=== PATIENT | female | born 1985 | race Caucasian/White ===

== ENCOUNTER 2018-05-24 18:50 | Emergency (ER) | payer OTHER ==
[~2018-05-24] VITALS: Ht 165.1 cm; Wt 117.9 kg
[~2018-05-24 18:50] MED LIST: MEDR10TA PO
[2018-05-24 19:05] VITALS: BP 173/79
[2018-05-24 19:37] LABS: BASO # 0.1 x10^3/uL (0.0-0.2); BASO % 1 % (0-3); EOS # 0.1 x10^3/uL (0.0-0.7); EOS % 1 % (0-3); HEMOGLOBIN 9.7 g/dL (12.0-15.5); LYMPH # 2.9 x10^3/uL (1.0-4.8); LYMPH % 26 % (24-48); MEAN CORPUSCULAR HEMOGLOBIN 22 pg (25-35); MEAN CORPUSCULAR HGB CONC 31 g/dL (31-37); MEAN CORPUSCULAR VOLUME 68 fL (79-100); MONO # 0.5 x10^3/uL (0.0-1.1); MONO % 5 % (0-9); NEUT # 7.5 x10^3uL (1.8-7.7); NEUT % 68 % (31-73); PLATELET COUNT 445 x10^3/uL (140-400); RED BLOOD COUNT 4.54 x10^6/uL (3.50-5.40); RED CELL DISTRIBUTION WIDTH 16.6 % (11.5-14.5); WHITE BLOOD COUNT 11.1 x10^3/uL (4.0-11.0)
[2018-05-24 19:40] LABS: PROTHROMBIN TIME PATIENT 12.3 SEC (11.7-14.0)
[2018-05-24 20:03] LABS: PLT ESTIMATE INCREASED (ADEQUATE)
[2018-05-24 20:04] LABS: ANISOCYTOSIS SLIGHT; HYPOCHROMIA MOD; MICROCYTOSIS MOD; OVALOCYTES FEW; POIKILOCYTOSIS SLIGHT
--- NOTE | 2018-05-24 20:09 | RAD ---
Indication:VAG BLEEDING TECHNIQUE: Grayscale, color Doppler and spectral waveform images of the pelvis obtained. COMPARISON: Previous exam from 10/21/2016 FINDINGS: Uterus is anteverted and measures 8.7 x 3.8 x 4.7 cm (nodule, AP, transverse). Endometrial stripe is thickened measuring 1 cm with significant internal vascularity. Cervix within normal limits. Nabothian cyst is seen in the cervix measuring 8 mm. Right ovary measures 4.1 x 2.7 x 2.8 cm and shows blood flow. Left ovary measures 4.5 x 2.5 x 2.3 cm and shows blood flow. 2.0 x 1.8 x 1.5 cm dominant follicle or simple cyst is seen in the right ovary. IMPRESSION: Thickened endometrium with internal vascularity. Findings may be secondary to endometrial hyperplasia although endometrial malignancy is not ruled out. Correlate with hysteroscopy. Electronically signed by: Best Odom DO (05/24/2018 8:04 PM) [facility]
--- NOTE | 2018-05-24 20:24 | PHYS DOC ---
Past Medical History Past Medical History: Anemia, Diabetes-Type II Additional Past Medical Histor: PCOS,OBESITY Past Surgical History: No Surgical History Additional Information: nonsmoker Alcohol Use: None Drug Use: None Adult General Chief Complaint Chief Complaint: VAGINAL BLEEDING HPI HPI Patient is a 33 YO F that is presenting with heavy menstrual bleeding that has lasted for a month. She was diagnosed with metromenorrhagia in 2017 but it was well controlled on control and metformin before this started one month ago. She reports that she has had diffuse lower abdominal pain since this began , she reports this pain as sharp, localized, constant, and an 8/10. She reports some episodes of dizziness but has never lost consciousness. She has taken Tylenol for the pain but to no relief. She denies trauma. Review of Systems Review of Systems Constitutional: Denies fever or chills [] Eyes: Denies change in visual acuity, redness, or eye pain [] HENT: Denies nasal congestion or sore throat [] Respiratory: Denies cough or shortness of breath [] Cardiovascular: Denies chest pain or palpitations [] GI: Denies abdominal pain, nausea, vomiting, or diarrhea [] : Reports heavy vaginal bleeding and pelvic pain Musculoskeletal: Denies back pain or joint pain [] Integument: Denies rash or skin lesions [] Neurologic: Denies headache, focal weakness or sensory changes [] Complete systems were reviewed and found to be within normal limits, except as documented in this note. Allergies Allergies Allergies Coded Allergies Type Severity Reaction Last Updated Verified No Known Drug Allergies 10/21/16 No Physical Exam Physical Exam Constitutional: Well developed, well nourished, no acute distress, non-toxic appearance. [] HENT: Normocephalic, atraumatic, nose normal. [] Eyes: Conjunctiva normal, no discharge. [] Neck: Normal range of motion, no tenderness, supple. [] Cardiovascular: Heart rate regular rhythm, no murmur [] Lungs & Thorax: Bilateral breath sounds clear to auscultation [] Abdomen: Soft, no tenderness. [] Skin: Warm, dry, no erythema, no rash. [] : Clotted blood within the vaginal vault, cervix midline, non-erythematous, and closed, mild cervical tenderness on manual examination Extremities: No tenderness, no edema. [] Neurologic: Alert and oriented X 3, no focal deficits noted. [] Psychologic: Affect normal, judgement normal, mood normal. [] Current Patient Data Vital Signs Vital Signs Date Time Temp Pulse Resp B/P (MAP) Pulse Ox O2 Delivery O2 Flow Rate FiO2 05/24/18 19:05 98.7 104 18 173/79 (110) 98 Room Air 98.7 Lab Values Laboratory Tests Test 05/24/18 19:15 05/24/18 20:10 05/24/18 20:21 White Blood Count 11.1 x10^3/uL (4.0-11.0) H Red Blood Count 4.54 x10^6/uL (3.50-5.40) Hemoglobin 9.7 g/dL (12.0-15.5) L Hematocrit 31.0 % (36.0-47.0) L Mean Corpuscular Volume 68 fL (79-100) L Mean Corpuscular Hemoglobin 22 pg (25-35) L Mean Corpuscular Hemoglobin Concent 31 g/dL (31-37) Red Cell Distribution Width 16.6 % (11.5-14.5) H Platelet Count 445 x10^3/uL (140-400) H Neutrophils (%) (Auto) 68 % (31-73) Lymphocytes (%) (Auto) 26 % (24-48) Monocytes (%) (Auto) 5 % (0-9) Eosinophils (%) (Auto) 1 % (0-3) Basophils (%) (Auto) 1 % (0-3) Neutrophils # (Auto) 7.5 x10^3uL (1.8-7.7) Lymphocytes # (Auto) 2.9 x10^3/uL (1.0-4.8) Monocytes # (Auto) 0.5 x10^3/uL (0.0-1.1) Eosinophils # (Auto) 0.1 x10^3/uL (0.0-0.7) Basophils # (Auto) 0.1 x10^3/uL (0.0-0.2) Platelet Estimate Increased (ADEQUATE) Hypochromasia Mod Poikilocytosis Slight Anisocytosis Slight Microcytosis Mod Ovalocytes Few Prothrombin Time 12.3 SEC (11.7-14.0) Prothrombin Time INR 0.9 (0.8-1.1) PTT 24 SEC (24-38) Urine Collection Type Unknown Urine Color Yellow Urine Clarity Cloudy Urine pH 5.5 Urine Specific [place] >=1.030 Urine Protein 30 mg/dL (NEG-TRACE) Urine Glucose (UA) Negative mg/dL (NEG) Urine Ketones (Stick) Negative mg/dL (NEG) Urine Blood Large (NEG) Urine Nitrite Negative (NEG) Urine Bilirubin Negative (NEG) Urine Urobilinogen Dipstick 0.2 mg/dL (0.2 mg/dL) Urine Leukocyte Esterase Negative (NEG) Urine RBC >40 /HPF (0-2) Urine WBC 1-4 /HPF (0-4) Urine Squamous Epithelial Cells Mod /LPF Urine Bacteria Few /HPF (0-FEW) Urine Mucus Mod /LPF POC Urine HCG, Qualitative Hcg negative (Negative) Laboratory Tests 05/24/18 19:15 Microbiology 05/24/18 Wet Prep - Final, Complete EKG EKG [] Radiology/Procedures Radiology/Procedures PROCEDURE: PELVIS W/TV Indication:VAG BLEEDING TECHNIQUE: Grayscale, color Doppler and spectral waveform images of the pelvis obtained. COMPARISON: Previous exam from 10/21/2016 FINDINGS: Uterus is anteverted and measures 8.7 x 3.8 x 4.7 cm (nodule, AP, transverse). Endometrial stripe is thickened measuring 1 cm with significant internal vascularity. Cervix within normal limits. Nabothian cyst is seen in the cervix measuring 8 mm. Right ovary measures 4.1 x 2.7 x 2.8 cm and shows blood flow. Left ovary measures 4.5 x 2.5 x 2.3 cm and shows blood flow. 2.0 x 1.8 x 1.5 cm dominant follicle or simple cyst is seen in the right ovary. IMPRESSION: Thickened endometrium with internal vascularity. Findings may be secondary to endometrial hyperplasia although endometrial malignancy is not ruled out. Correlate with hysteroscopy. Electronically signed by: Best Odom DO (05/24/2018 8:04 PM) [facility] Course & Med Decision Making Course & Med Decision Making Pertinent Labs and Imaging studies reviewed. (See chart for details) Patient is a 33 YO F that is presenting with one month of heavy vaginal bleeding. Patient has a PMH of PCOS and metromenorrhagia that had been well controlled on control and metformin. Labs were obtained and posted to chart. Coagulation was WNL. CBC showed a Hgb of 9.7. Pelvic exam was conducted showing blood in the vaginal vault. Swabs obtained for gonorrhea, chlamydia, and trichomonas. TVUS showed thickened endometrium with internal vascularity. Findings may be secondary to endometrial hyperplasia although endometrial malignancy is not ruled out. Patient advised to follow up with an STAPLER MACHINE to further evaluate the increased bleeding. Patient stable for discharge with outpatient follow-up with PCP. Discussed findings and plan with patient and family, who acknowledge understanding and agreement. Dragon Disclaimer Dragon Disclaimer This electronic medical record was generated, in whole or in part, using a voice recognition dictation system. Departure Departure Impression: Primary Impression: Menometrorrhagia Disposition: 01 HOME, SELF-CARE Condition: STABLE Referrals: MARY RICHARD (PCP) KIMMIE MORENO Jr, MD Patient Instructions: Menorrhagia, [id number] LACEY MENESES DO May 24, 2018 20:24
[2018-05-24 20:28] LABS: BILIRUBIN,URINE NEGATIVE (NEG); CLARITY,URINE CLOUDY; COLOR,URINE YELLOW; NITRITE,URINE NEGATIVE (NEG); PH,URINE 5.5; PROTEIN,URINE 30 mg/dL (NEG-TRACE); UROBILINOGEN,URINE 0.2 mg/dL (0.2 mg/dL)
[2018-05-24 20:41] LABS: BACTERIA,URINE FEW /HPF (0-FEW); RBC,URINE >40 /HPF (0-2); SQUAMOUS EPITHELIAL CELL,UR MOD /LPF
== END 2018-05-24 21:15 | disposition home or self-care (01) ==
LOC: ER 18:50
DX: N92.1 Excessive and frequent menstruation with irregular cycle (principal); N88.8 Other specified noninflammatory disorders of cervix uteri; R42 Dizziness and giddiness; E11.9 Type 2 diabetes mellitus without complications; E66.9 Obesity, unspecified; Z68.41 Body mass index [BMI] 40.0-44.9, adult
CPT/HCPCS: 76830; 76856; 81001; 81025; 85025; 85610; 85730; 99284; Q0111

== ENCOUNTER 2018-06-21 07:53 | Day surgery (SDC) | payer OTHER ==
[~2018-06-21 07:53] MED LIST changes: +ACET500T33 PO; +HYDROmorphone 2 MG/ML VIAL IV PRN; +IV RINGERS,LACTATED 1000ML 1,000 ML IV SCH; +LEVO75TA PO; +LIDOCAINE 1% PF 2 ML VIAL. ID PRN; +METF500T16 PO; +MORPHINE SULFATE 2 MG/ML VIAL. IV PRN; +MULT1TAB52 PO; +ONDANSETRON PF 4 MG/2 ML VIAL. IV PRN; +PROCHLORPERAZINE 10 MG/2 ML VIAL. IV PRN; +fentaNYL PF VIAL 100 MCG/2 ML VIAL IV PRN
[2018-06-21 08:17] LABS: U PREG PATIENT NEGATIVE (NEG)
[2018-06-21] MEDS ORDERED: ONDANSETRON PF 4 MG/2 ML VIAL. ONE (08:23)
[2018-06-21] MEDS ORDERED: LIDOCAINE 2% PF 5 ML VIAL. ONE (08:23)
[2018-06-21] MEDS ORDERED: DEXAMETHASONE SOD PHOS 20 MG/5 ML VIAL. ONE (08:23)
[2018-06-21] MEDS ORDERED: fentaNYL PF VIAL 100 MCG/2 ML VIAL ONE (08:23)
[2018-06-21] MEDS ORDERED: PROPOFOL 20 ML IV ONE ×2 (08:23→10:30)
[2018-06-21] MEDS ORDERED: DESFLURANE 16 TO 30 MINUTES. IH ONE (10:21)
[2018-06-21] MEDS ORDERED: KETOROLAC 30 MG/ML INJ FOR OR. INJ ONE (10:35)
--- NOTE | 2018-06-21 10:48 | PDOC ---
BRIEF OPERATIVE NOTE Date: Jun 21, 2018 Pre-Op Diagnosis DUB, morbid obesity Post-Op Diagnosis same Procedure Performed hysteroscopy D&C with trHoney system Surgeon Dr. Kathy Harding Anesthesiologist Dr. Curtis Anesthesia Type: General Blood Loss 10cc IV Fluid 250cc Urine Output 100cc straight cath prior to procedure Specimens Obtained uterine currettings Findings uterus sounded to 8-8.5cm no fibroids seen, but abundant polypoid tissue just seen Complications none def 350cc ; total resection time 2min 28sec Operative Note [id number] KATHY HARDING MD Jun 21, 2018 10:48
[2018-06-21] MEDS ORDERED: diphenhydrAMINE HCL 25 MG CAPSULE PO PRN (11:00)
[2018-06-21] MEDS ORDERED: NALOXONE 0.4 MG/ML VIAL. IV PRN (11:00)
[2018-06-21] MEDS ORDERED: HYDROcodone/APAP 5/325MG 1 TAB TABLET PO PRN (11:00)
[2018-06-21] MEDS ORDERED: SIMETHICONE 80 MG TAB.CHEW PO PRN (11:00)
[2018-06-21] MEDS ORDERED: MAG HYDROX/ALUMINUM HYD/SIMETH 30 ML ORAL.SUSP PO PRN (11:00)
[2018-06-21] MEDS ORDERED: 0.9 % SODIUM CHLORIDE 10 ML DISP.SYRIN. IV PRN (11:00)
[2018-06-21] MEDS ORDERED: CALCIUM CARBONATE 500 MG TAB.CHEW PO PRN (11:00)
[2018-06-21] MEDS ORDERED: diphenhydrAMINE 50 MG/ML VIAL IV PRN (11:00)
[2018-06-21] MEDS ORDERED: HYDR-2761 PO (11:16)
--- NOTE | 2018-06-21 11:24 | OP ---
DATE OF SURGERY: 06/21/2018 PREOPERATIVE DIAGNOSES: Dysfunctional uterine bleeding and morbid obesity, failing outpatient medical management. POSTOPERATIVE DIAGNOSES: Dysfunctional uterine bleeding and morbid obesity, failing outpatient medical management. PROCEDURE: Hysteroscopy, D and C with TruClear system. SURGEON: Franchesca Harding M.D. QUALITY REVIEW TRAINER: OR personnel. ANESTHESIOLOGIST: Lenin Curtis M.D. ANESTHESIA: General. ESTIMATED BLOOD LOSS: 10 mL. URINE OUTPUT: 100 mL straight cathed prior to procedure. INTRAVENOUS FLUIDS: 250 mL of Crystalloid. SPECIMENS: Uterine curettings. FINDINGS: A uterus that sounded to 8 to 8.5 cm. No true fibroids seen. She did have abundant red tissue that was just polypoid in nature. COMPLICATIONS: None. There was a total deficit of 350 mL of fluid and a total resection time of 2 minutes and 28 seconds with the TruClear system with the soft tissue blade with the mini shaver. DESCRIPTION OF PROCEDURE: This patient was taken to the operating room, where general anesthesia was placed. The patient was placed in dorsal lithotomy position in [facility]. The patient's vagina had been prepped and draped in the normal sterile fashion and a straight cath urine had been done prior to my arrival. Once a timeout was performed, a weighted speculum was placed in the patient's vagina. A single-tooth tenaculum was used to grasp the anterior lip of the cervix. Hegar dilators were used to dilate up to a 10. She sounded to 8 to 8.5 cm. The scope had already been primed and ready, the TruClear scope. It was placed in with the above findings. The mini soft tissue blade was obtained and a fractional curetting was done under direct visualization. It did clean the uterus out nicely. Both tubal ostia were clearly seen and there was no defect in the uterine cavity appreciated. Once this was done, the procedure was ended. It was removed. The tenaculum was removed. There was no bleeding from the tenaculum sites. Weighted speculum was removed and she was awakened from anesthesia and brought to recovery room in stable condition. FRANCHESCA HARDING MD DR: FAUSTO/clemente JOB#: [id number] / [id number]
[2018-06-21 12:06] VITALS: BP 139/66
--- NOTE | 2018-06-22 17:10 | PATHOLOGY ---
[facility] Accession Number: [id number] . 01 Material submitted: . UTERINE CURETTINGS . 01 Clinical history: . Menorrhagia . 02 Diagnosis: Uterine curettings: - Segments of proliferative endometrium and endometrial polyp with focal recent stromal hemorrhage. . (JPM:mm; 06/22/2018) [facility]/06/22/2018 . 02 Comment: There is no evidence of hyperplasia or malignancy. . (JPM:mm; 06/22/2018) . 02 Electronically signed: . Pablo Chavez MD, Pathologist NPI- [id number] . 01 Gross description: . Received in formalin labeled "Angella Samano, uterine curettings," are multiple segments of brown soft tissue measuring 2.4 x 1.2 x 0.2 cm in aggregate dimensions. The specimen is filtered and entirely submitted in cassette A1. (TSD; 06/21/2018) TOB/TOB . 02 Pathologist provided ICD-10: N84.0 . 02 CPT . 425003 Specimen Comment: A courtesy copy of this report has been sent to Specimen Comment: [phone], . Specimen Comment: Report sent to / DR RICHARD Specimen Comment: A duplicate report has been generated due to demographic updates. Performed at: 01 [facility] [address] [facility] [address], [place] [id number] MD Javier Watts MD Phone: [phone] Performed at: 02 [facility] [address] [place], [place] [id number] MD Pablo Chavez MD Phone: [phone]
== END 2018-06-21 12:32 | disposition home or self-care (01) ==
LOC: SURG 07:53
PROVIDERS: ATTEND Obstetrics & Gynecology
DX: N84.0 Polyp of corpus uteri (principal); E11.9 Type 2 diabetes mellitus without complications; E03.9 Hypothyroidism, unspecified; E28.2 Polycystic ovarian syndrome; D64.9 Anemia, unspecified; Z79.84 Long term (current) use of oral hypoglycemic drugs; Z79.899 Other long term (current) drug therapy; Z80.41 Family history of malignant neoplasm of ovary; Z83.49 Family history of other endocrine, nutritional and metabolic diseases; Z82.49 Family history of ischemic heart disease and other diseases of the circulatory system; Z83.3 Family history of diabetes mellitus; E66.01 Morbid (severe) obesity due to excess calories; Z68.43 Body mass index [BMI] 50.0-59.9, adult
CPT/HCPCS: 58558; 81025; 82962; 88305; A7015; J1100; J1885; J2001; J2405; J2704; J3010

== ENCOUNTER 2019-03-21 00:47 | Inpatient (IN) | payer OTHER ==
[~2019-03-21] VITALS: Ht 167.6 cm; Wt 117.5 kg
[~2019-03-21 00:47] MED LIST changes: +HYDR-2761 PO; -HYDROmorphone 2 MG/ML VIAL IV PRN; -IV RINGERS,LACTATED 1000ML 1,000 ML IV SCH; -LIDOCAINE 1% PF 2 ML VIAL. ID PRN; -MORPHINE SULFATE 2 MG/ML VIAL. IV PRN; -ONDANSETRON PF 4 MG/2 ML VIAL. IV PRN; -PROCHLORPERAZINE 10 MG/2 ML VIAL. IV PRN; -fentaNYL PF VIAL 100 MCG/2 ML VIAL IV PRN
[2019-03-21] MEDS ORDERED: IV NORMAL SALINE 1000ML BAG 1,000 ML IV SCH (01:45)
[2019-03-21 01:48] LABS: BASO # 0.1 x10^3/uL (0.0-0.2); BASO % 1 % (0-3); EOS % 1 % (0-3); HEMATOCRIT 33.1 % (36.0-47.0); HEMOGLOBIN 10.6 g/dL (12.0-15.5); LYMPH # 3.2 x10^3/uL (1.0-4.8); LYMPH % 37 % (24-48); MEAN CORPUSCULAR HEMOGLOBIN 22 pg (25-35); MEAN CORPUSCULAR HGB CONC 32 g/dL (31-37); MEAN CORPUSCULAR VOLUME 69 fL (79-100); MONO # 0.5 x10^3/uL (0.0-1.1); MONO % 6 % (0-9); NEUT # 4.8 x10^3/uL (1.8-7.7); NEUT % 55 % (31-73); PLATELET COUNT 346 x10^3/uL (140-400); RED CELL DISTRIBUTION WIDTH 17.6 % (11.5-14.5); WHITE BLOOD COUNT 8.6 x10^3/uL (4.0-11.0)
[2019-03-21 01:57] LABS: CALCIUM 9.1 mg/dL (8.5-10.1); CREATININE 0.7 mg/dL (0.6-1.0); GFR 96.4; POTASSIUM 3.7 mmol/L (3.5-5.1)
[2019-03-21] MEDS ORDERED: KETOROLAC 30 MG/ML VIAL. IV ONE (02:00)
[2019-03-21] MEDS ORDERED: ONDANSETRON PF 4 MG/2 ML VIAL. IV ONE (02:00)
[2019-03-21 02:03] LABS: ALBUMIN 3.4 g/dL (3.4-5.0); ALBUMIN/GLOBULIN RATIO 0.7 (1.0-1.7); TOTAL BILIRUBIN 0.3 mg/dL (0.2-1.0); TOTAL PROTEIN 8.2 g/dL (6.4-8.2)
[2019-03-21 02:11] LABS: HYPOCHROMIA MOD; PLT ESTIMATE ADEQUATE (ADEQUATE)
[2019-03-21 02:12] LABS: ANISOCYTOSIS SLIGHT; MICROCYTOSIS MARKED; OVALOCYTES FEW; TEAR DROP CELLS OCC
[2019-03-21 02:46] LABS: BILIRUBIN,URINE NEGATIVE (NEG); CLARITY,URINE CLEAR; COLOR,URINE AMBER; NITRITE,URINE NEGATIVE (NEG); PH,URINE 5.5; PROTEIN,URINE NEGATIVE (NEG-TRACE)
[2019-03-21 02:52] LABS: BACTERIA,URINE FEW /HPF (0-FEW); RBC,URINE 0 /HPF (0-2); SQUAMOUS EPITHELIAL CELL,UR MOD /LPF
--- NOTE | 2019-03-21 02:52 | RAD ---
INDICATION: Epigastric pain COMPARISON: None. TECHNIQUE: Grayscale and color ultrasound images obtained through the abdomen. FINDINGS: Aorta/IVC: Only partially seen Pancreas: Partially seen without definite adjacent fluid collection. Liver: Echogenic with heterogeneity. Portions not well seen secondary to poor beam penetration. Gallbladder: Gallstones. Wall measures 3-4 mm but large portions of the wall not seen secondary to shadowing Common Bile Duct: Not dilated. Right Kidney: No hydronephrosis. IMPRESSION: * Gallstones are identified. A large portion of the gallbladder wall is not seen secondary to shadowing from the gallstones but visualized portion appears mildly thickened. The patient also does have some pain in the right upper quadrant the abdomen. Given this constellation of findings causes such as cholecystitis is not excluded on this examination and if further imaging evaluation is desired nuclear hepatobiliary scan could further evaluate. * The liver is echogenic. Nonspecific but can be seen with fatty infiltration Electronically signed by: Augustus Thakkar MD (03/21/2019 2:49 AM) [facility]
--- NOTE | 2019-03-21 03:09 | PHYS DOC ---
Past Medical History Past Medical History: Anemia, Diabetes-Type II Additional Past Medical Histor: PCOS,OBESITY Past Surgical History: No Surgical History Alcohol Use: None Drug Use: None Adult General Chief Complaint Chief Complaint: ABDOMINAL PAIN HPI HPI Patient is a 34 year old with history of type 2 diabetes mellitus and anemia who presents with complaining of abdominal pain. Patient complaining of epigastric pain with radiation to her back for the last 4 days as a constant pain and rated her pain 8/10. Patient states she had nausea and 2 or 3 episodes of vomiting every day without diarrhea and constipation, fever and chills, urinary symptoms, vaginal bleeding or . Patient denies the pain does not change with eating or activity and denies history of the same pain. Review of Systems Review of Systems Constitutional: Denies fever or chills [] Eyes: Denies change in visual acuity, redness, or eye pain [] HENT: Denies nasal congestion or sore throat [] Respiratory: Denies cough or shortness of breath [] Cardiovascular: No additional information not addressed in HPI [] GI: Reports abdominal pain, nausea, vomiting, denies bloody stools or diarrhea [] : Denies dysuria or hematuria [] Musculoskeletal: Denies back pain or joint pain [] Integument: Denies rash or skin lesions [] Neurologic: Denies headache, focal weakness or sensory changes [] Endocrine: Denies polyuria or polydipsia [] All other systems were reviewed and found to be within normal limits, except as documented in this note. Current Medications Current Medications Current Medications Medications (Trade) Dose Ordered Sig/Marilee Start Time Stop Time Status Last Admin Dose Admin Ketorolac Tromethamine (Toradol 30mg Vial) 30 mg 1X ONCE 03/21/19 02:00 03/21/19 02:01 DC Ondansetron HCl (Zofran) 4 mg 1X ONCE 03/21/19 02:00 03/21/19 02:01 DC 03/21/19 02:21 4 MG Sodium Chloride 1,000 ml @ 1,000 mls/hr Q1H 03/21/19 01:45 03/21/19 02:44 DC 03/21/19 02:10 1,000 MLS/HR Allergies Allergies Allergies Coded Allergies Type Severity Reaction Last Updated Verified ketorolac Allergy Unknown 03/21/19 Yes Physical Exam Physical Exam Constitutional: Well developed, well nourished, moderately distress, non-toxic appearance, morbidly obese. [] HENT: Normocephalic, atraumatic, bilateral external ears normal, oropharynx moist, no oral exudates, nose normal. [] Eyes: PERRLA, EOMI, conjunctiva normal, no discharge. [] Neck: Normal range of motion, no tenderness, supple, no stridor. [] Cardiovascular:Heart rate regular rhythm, no murmur [] Lungs & Thorax: Bilateral breath sounds clear to auscultation [] Abdomen: Bowel sounds normal, soft, epigastric and right upper quadrant guarding , no masses, no pulsatile masses. [] Skin: Warm, dry, no erythema, no rash. [] Back: No tenderness, no CVA tenderness. [] Extremities: No tenderness, no cyanosis, no clubbing, ROM intact, no edema. [] Neurologic: Alert and oriented X 3, normal motor function, normal sensory function, no focal deficits noted. [] Psychologic: Affect normal, judgement normal, mood normal. [] Current Patient Data Vital Signs Vital Signs Date Time Temp Pulse Resp B/P (MAP) Pulse Ox O2 Delivery O2 Flow Rate FiO2 03/21/19 02:49 92 131/78 (95) 98 Room Air 03/21/19 01:22 99.0 18 99.0 Lab Values Laboratory Tests Test 03/21/19 01:38 03/21/19 02:40 White Blood Count 8.6 x10^3/uL (4.0-11.0) Red Blood Count 4.80 x10^6/uL (3.50-5.40) Hemoglobin 10.6 g/dL (12.0-15.5) L Hematocrit 33.1 % (36.0-47.0) L Mean Corpuscular Volume 69 fL (79-100) L Mean Corpuscular Hemoglobin 22 pg (25-35) L Mean Corpuscular Hemoglobin Concent 32 g/dL (31-37) Red Cell Distribution Width 17.6 % (11.5-14.5) H Platelet Count 346 x10^3/uL (140-400) Neutrophils (%) (Auto) 55 % (31-73) Lymphocytes (%) (Auto) 37 % (24-48) Monocytes (%) (Auto) 6 % (0-9) Eosinophils (%) (Auto) 1 % (0-3) Basophils (%) (Auto) 1 % (0-3) Neutrophils # (Auto) 4.8 x10^3/uL (1.8-7.7) Lymphocytes # (Auto) 3.2 x10^3/uL (1.0-4.8) Monocytes # (Auto) 0.5 x10^3/uL (0.0-1.1) Eosinophils # (Auto) 0.0 x10^3/uL (0.0-0.7) Basophils # (Auto) 0.1 x10^3/uL (0.0-0.2) Platelet Estimate Adequate (ADEQUATE) Hypochromasia Mod Anisocytosis Slight Microcytosis Marked Tear Drop Cells Occ Ovalocytes Few Sodium Level 141 mmol/L (136-145) Potassium Level 3.7 mmol/L (3.5-5.1) Chloride Level 101 mmol/L (98-107) Carbon Dioxide Level 29 mmol/L (21-32) Anion Gap 11 (6-14) Blood Urea Nitrogen 7 mg/dL (7-20) Creatinine 0.7 mg/dL (0.6-1.0) Estimated GFR (Cockcroft-Gault) 96.4 BUN/Creatinine Ratio 10 (6-20) Glucose Level 105 mg/dL (70-99) H Calcium Level 9.1 mg/dL (8.5-10.1) Total Bilirubin 0.3 mg/dL (0.2-1.0) Aspartate Amino Transferase (AST) 58 U/L (15-37) H Alanine Aminotransferase (ALT) 53 U/L (14-59) Alkaline Phosphatase 94 U/L (46-116) Total Protein 8.2 g/dL (6.4-8.2) Albumin 3.4 g/dL (3.4-5.0) Albumin/Globulin Ratio 0.7 (1.0-1.7) L Lipase 133 U/L (73-393) Urine Collection Type Unknown Urine Color [place] Urine Clarity Clear Urine pH 5.5 Urine Specific [place] 1.025 Urine Protein Negative mg/dL (NEG-TRACE) Urine Glucose (UA) Negative mg/dL (NEG) Urine Ketones (Stick) Trace mg/dL (NEG) Urine Blood Negative (NEG) Urine Nitrite Negative (NEG) Urine Bilirubin Negative (NEG) Urine Urobilinogen Dipstick 1.0 mg/dL (0.2 mg/dL) Urine Leukocyte Esterase Negative (NEG) Urine RBC 0 /HPF (0-2) Urine WBC 1-4 /HPF (0-4) Urine Squamous Epithelial Cells Mod /LPF Urine Bacteria Few /HPF (0-FEW) Urine Mucus Marked /LPF Laboratory Tests 03/21/19 01:38 Laboratory Tests 03/21/19 01:38 EKG EKG [] Radiology/Procedures Radiology/Procedures [][facility] [address] [place] [address] IMAGING REPORT Signed PATIENT: TABATHA LOVE ACCOUNT: [id number] : 1985 LOCATION: ER AGE: 34 SEX: F EXAM STATUS: REG ER ORD. PHYSICIAN: BLOSSOM MORALES MD REASON: epigastric pain PROCEDURE: ABDOMEN LTD INDICATION: Epigastric pain COMPARISON: None. TECHNIQUE: Grayscale and color ultrasound images obtained through the abdomen. FINDINGS: Aorta/IVC: Only partially seen Pancreas: Partially seen without definite adjacent fluid collection. Liver: Echogenic with heterogeneity. Portions not well seen secondary to poor beam penetration. Gallbladder: Gallstones. Wall measures 3-4 mm but large portions of the wall not seen secondary to shadowing Common Bile Duct: Not dilated. Right Kidney: No hydronephrosis. IMPRESSION: * Gallstones are identified. A large portion of the gallbladder wall is not seen secondary to shadowing from the gallstones but visualized portion appears mildly thickened. The patient also does have some pain in the right upper quadrant the abdomen. Given this constellation of findings causes such as cholecystitis is not excluded on this examination and if further imaging evaluation is desired nuclear hepatobiliary scan could further evaluate. * The liver is echogenic. Nonspecific but can be seen with fatty infiltration Electronically signed by: Felisha He MD (03/21/2019 2:49 AM) [facility] DICTATED and SIGNED BY: FELISHA HE MD DATE: 03/21/19 0249 Course & Med Decision Making Course & Med Decision Making Pertinent Labs and Imaging studies reviewed. (See chart for details) Evaluation of patient in ER showed 34-year-old male patient with complaining of epigastric and right upper quadrant pain for 4 days and nausea and vomiting. Patient had tenderness of epigastric and right upper quadrant and gallbladder ultrasound showed gallstones with wall thickening of gallbladder. Patient treated with IV fluid, Zofran, fentanyl and morphine with improvement of her pain. Patient requiring admission for further evaluation and treatment. Discussed with Dr. Paulino who is in agreement with admission. Discussed findings and plan with patient and family, who acknowledge understanding and agreement. Surgical consult was requested. Dragon Disclaimer Dragon Disclaimer This electronic medical record was generated, in whole or in part, using a voice recognition dictation system. Departure Departure Impression: Primary Impression: Acute cholecystitis Additional Impressions: Morbid obesity Chronic anemia Nausea and vomiting Disposition: ADMITTED INPATIENT (at 0307) Admitting Physician: CHALINO (Dr. Paulino accepted admission) Condition: IMPROVED Referrals: MARY RICHARD (PCP) Problem Qualifiers Additional Impressions: Nausea and vomiting Vomiting type: unspecified Vomiting Intractability: unspecified Qualified Codes: R11.2 - Nausea with vomiting, unspecified BLOSSOM MORALES MD Mar 21, 2019 03:09
[2019-03-21] MEDS ORDERED: MORPHINE SULFATE 4 MG/ML VIAL. IV PRN (03:15)
[2019-03-21] MEDS ORDERED: MORPHINE SULFATE 4 MG/ML VIAL. IV ONE (03:30)
[2019-03-21 04:02] VITALS: BP 121/76
[2019-03-21] MEDS: IV NORMAL SALINE 1000ML BAG 1,000 ML IV SCH ×3 (04:15→17:05)
[2019-03-21] MEDS ORDERED: LEXAPRO20 MG PO (05:02)
[2019-03-21 07:20] VITALS: BP 122/83
[2019-03-21] MEDS: ONDANSETRON PF 4 MG/2 ML VIAL. IVP PRN ×3 (07:22→19:48)
[2019-03-21] MEDS: LEVOTHYROXINE 75 MCG TABLET PO SCH (10:30)
--- NOTE | 2019-03-21 10:51 | PDOC1 ---
History and Physical Date of Admission Date of Admission DATE: 03/21/19 TIME: 10:47 Identification/Chief Complaint Chief Complaint Abdominal pain Source Source: Patient History of Present Illness History of Present Illness Ms Addison is a 34 yo F w/ PMHx morbid obesity, type 2 diabetes mellitus, PCOS and anemia who presents with complaining of abdominal pain. Patient complaining of epigastric pain with radiation to her back for the last 4 days as a constant pain and rated her pain 8/10. Patient states she had nausea and 2 or 3 episodes of vomiting every day without diarrhea and constipation, fever and chills, urina ry symptoms, vaginal bleeding or . Patient denies the pain does not change with eating or activity and denies history of the same pain. Past Medical History Cardiovascular: No pertinent hx Pulmonary: No pertinent hx GI: No pertinent hx Heme/Onc: Anemia NOS Hepatobiliary: No pertinent hx Psych: No pertinent hx Rheumatologic: No pertinent hx Infectious disease: No pertinent hx ENT: No pertinent hx Renal/: No pertinent hx Endocrine: Diabetes Dermatology: No pertinent hx Past Surgical History Past Surgical History: No pertinent history Family History Family History: Diabetes, High Cholestrol, Hypothyroidism Social History Smoke: No ALCOHOL: rare Drugs: None Current Problem List Problem List Problems Medical Problems: (1) Acute cholecystitis Status: Acute (2) Chronic anemia Status: Acute (3) Morbid obesity Status: Acute (4) Nausea and vomiting Status: Acute Current Medications Current Medications Current Medications Sodium Chloride 1,000 ml @ 1,000 mls/hr Q1H IV Last administered on 03/21/19at 02:10; Start 03/21/19 at 01:45; Stop 03/21/19 at 02:44; Status DC Ondansetron HCl (Zofran) 4 mg 1X ONCE IV Last administered on 03/21/19at 02:21; Start 03/21/19 at 02:00; Stop 03/21/19 at 02:01; Status DC Ketorolac Tromethamine (Toradol 30mg Vial) 30 mg 1X ONCE IV ; Start 03/21/19 at 02:00; Stop 03/21/19 at 02:01; Status DC Morphine Sulfate (Morphine Sulfate) 4 mg 1X ONCE IV Last administered on 03/21/19at 03:31; Start 03/21/19 at 03:30; Stop 03/21/19 at 03:31; Status DC Morphine Sulfate (Morphine Sulfate) 4 mg PRN Q2HR PRN IV PAIN Last administered on 03/21/19at 05:26; Start 03/21/19 at 03:15; Stop 03/21/19 at 09:00; Status DC Sodium Chloride 1,000 ml @ 150 mls/hr Q6H40M IV Last administered on 03/21/19at 04:15; Start 03/21/19 at 03:15; Stop 03/22/19 at 03:14 Ondansetron HCl (Zofran) 4 mg PRN Q6HRS PRN IVP NAUSEA/VOMITING Last administered on 03/21/19at 07:22; Start 03/21/19 at 07:15 Active Scripts Active Reported Lexapro (Escitalopram Oxalate) 20 Mg Tablet 1 Tab PO DAILY Hydrocodone-Apap 5-325 (Hydrocodone Bit/Acetaminophen) 1 Tab Tablet 1-2 Tab PO PRN Q6HRS PRN LAST DOSE GIVEN: at so next dose at as needed for pain. Tylenol Extra Strength (Acetaminophen) 500 Mg Tablet 500 Mg PO PRN PRN Multivitamins (Multivitamin) 1 Each Tablet 1 Tab PO DAILY Synthroid (Levothyroxine Sodium) 75 Mcg Tablet 1 Tab PO DAILY Metformin Hcl 500 Mg Tablet 1,000 Mg PO BIDWMEALS Allergies Allergies: Coded Allergies: ketorolac (Verified Allergy, Unknown, 03/21/19) ROS General: YES: Fatigue, Malaise, Appetite; No: Chills, Night Sweats, Other PSYCHOLOGICAL ROS: No: Anxiety, Behavioral Disorder, Concentration difficultie, Decreased libido, Depression, Disorientation, Hallucinations, Hostility, Irrit ablity, Memory difficulties, Mood Swings, Obsessive thoughts, Physical abuse, Sexual abuse, Sleep disturbances, Suicidal ideation, Other Eyes: No Blurry vision, No Decreased vision, No Double vision, No Dry eyes, No Excessive tearing, No Eye Pain, No Itchy Eyes, No Loss of vision, No Photophobia, No Scotomata, No Uses contacts, No Uses glasses, No Other HEENT: No: Heacaches, Visual Changes, Hearing change, Nasal congestion, Nasal discharge, Oral lesions, Sinus pain, Sore Throat, Epistaxis, Sneezing, Snoring, Tinnitus, Vertigo, Vocal changes, Other ALLERGY AND IMMUNOLOGY: No: Hives, Insect Bite Sensitivity, Itchy/Watery Eyes, Nasal Congestion, Post Nasal Drip, Seasonal Allergies, Other Hematological and Lymphatic: No: Bleeding Problems, Blood Clots, Blood Transfusions, Brusing, Night Sweats, Pallor, Swollen Lymph Nodes, Other ENDOCRINE: No: Breast Changes, Galactorrhea, Hair Pattern Changes, Hot Flashes, Malaise/lethargy, Mood Swings, Palpitations, Polydipsia/polyuria, Skin Changes, Temperature Intolerance, Unexpected Weight Changes, Other Breast: No New/Changing Breast Lumps, No Nipple changes, No Nipple discharge, No Other Respiratory: No: Cough, Hemoptysis, Orthopnea, Pleuritic Pain, Shortness of breath, SOB with excertion, Sputum Changes, Stridor, Tachypnea, Wheezing, Other Cardiovascular: No Chest Pain, No Palpitations, No Orthopnea, No Paroxysmal Noc. Dyspnea, No Edema, No Lt Headedness, No Other Gastrointestinal: Yes Nausea, Yes Vomiting, Yes Abdominal Pain, Yes Diarrhea; No Constipation, No Melena, No Hematochezia, No Other Genitourinary: No Dysuria, No Frequency, No Incontinence, No Hematuria, No Retention, No Discharge, No Urgency, No Pain, No Flank Pain, No Other, No , No , No , No , No , No , No Musculoskeletal: No Gait Disturbance, No Joint Pain, No Joint Stiffness, No Joint Swelling, No Muscle Pain, No Muscular Weakness, No Pain In:, No Swelling In:, No Other Neurological: No Behavorial Changes, No Bowel/Bladder ControlChng, No Confusion, No Dizziness, No Gait Disturbance, No Headaches, No Impaired Coord/balance, No Memory Loss, No Numbness/Tingling, No Seizures, No Speech Problems, No Tremors, No Visual Changes, No Weakness, No Other Skin: No Dry Skin, No Eczema, No Hair Changes, No Lumps, No Mole Changes, No Mottling, No Nail Changes, No Pruritus, No Rash, No Skin Lesion Changes, No Other, No Acne Physical Exam General: Alert, Oriented X3, Cooperative, mild distress HEENT: Atraumatic, PERRLA, EOMI, Mucous membr. moist/pink Lungs: Clear to auscultation, Normal air movement Heart: S1S2, RRR, no thrills, no rubs Abdomen: Normal bowel sounds, Soft, No hepatosplenomegaly, No masses, Other (RUQ tender) Rectal Exam: not examined Extremities: No clubbing, No cyanosis, No edema, Normal pulses, No tenderness/swelling Skin: No rashes, No breakdown, No significant lesion Neuro: Normal gait, Normal speech, Strength at 5/5 X4 ext, Normal tone, Sensation intact, Cranial nerves 3-12 NL, Reflexes 2+ Psych/Mental Status: Mental status NL, Mood NL Vitals Vitals Vital Signs Date Time Temp Pulse Resp B/P (MAP) Pulse Ox O2 Delivery O2 Flow Rate FiO2 03/21/19 08:00 Room Air 03/21/19 07:20 97.6 78 18 122/83 (96) 95 97.6 Labs Labs Laboratory Tests Test 03/21/19 01:38 03/21/19 02:40 White Blood Count 8.6 x10^3/uL (4.0-11.0) Red Blood Count 4.80 x10^6/uL (3.50-5.40) Hemoglobin 10.6 g/dL (12.0-15.5) Hematocrit 33.1 % (36.0-47.0) Mean Corpuscular Volume 69 fL (79-100) Mean Corpuscular Hemoglobin 22 pg (25-35) Mean Corpuscular Hemoglobin Concent 32 g/dL (31-37) Red Cell Distribution Width 17.6 % (11.5-14.5) Platelet Count 346 x10^3/uL (140-400) Neutrophils (%) (Auto) 55 % (31-73) Lymphocytes (%) (Auto) 37 % (24-48) Monocytes (%) (Auto) 6 % (0-9) Eosinophils (%) (Auto) 1 % (0-3) Basophils (%) (Auto) 1 % (0-3) Neutrophils # (Auto) 4.8 x10^3/uL (1.8-7.7) Lymphocytes # (Auto) 3.2 x10^3/uL (1.0-4.8) Monocytes # (Auto) 0.5 x10^3/uL (0.0-1.1) Eosinophils # (Auto) 0.0 x10^3/uL (0.0-0.7) Basophils # (Auto) 0.1 x10^3/uL (0.0-0.2) Platelet Estimate Adequate (ADEQUATE) Hypochromasia Mod Anisocytosis Slight Microcytosis Marked Tear Drop Cells Occ Ovalocytes Few Sodium Level 141 mmol/L (136-145) Potassium Level 3.7 mmol/L (3.5-5.1) Chloride Level 101 mmol/L (98-107) Carbon Dioxide Level 29 mmol/L (21-32) Anion Gap 11 (6-14) Blood Urea Nitrogen 7 mg/dL (7-20) Creatinine 0.7 mg/dL (0.6-1.0) Estimated GFR (Cockcroft-Gault) 96.4 BUN/Creatinine Ratio 10 (6-20) Glucose Level 105 mg/dL (70-99) Calcium Level 9.1 mg/dL (8.5-10.1) Total Bilirubin 0.3 mg/dL (0.2-1.0) Aspartate Amino Transf (AST/SGOT) 58 U/L (15-37) Alanine Aminotransferase (ALT/SGPT) 53 U/L (14-59) Alkaline Phosphatase 94 U/L (46-116) Total Protein 8.2 g/dL (6.4-8.2) Albumin 3.4 g/dL (3.4-5.0) Albumin/Globulin Ratio 0.7 (1.0-1.7) Lipase 133 U/L (73-393) Urine Collection Type Unknown Urine Color Magdalena Urine Clarity Clear Urine pH 5.5 Urine Specific [place] 1.025 Urine Protein Negative mg/dL (NEG-TRACE) Urine Glucose (UA) Negative mg/dL (NEG) Urine Ketones (Stick) Trace mg/dL (NEG) Urine Blood Negative (NEG) Urine Nitrite Negative (NEG) Urine Bilirubin Negative (NEG) Urine Urobilinogen Dipstick 1.0 mg/dL (0.2 mg/dL) Urine Leukocyte Esterase Negative (NEG) Urine RBC 0 /HPF (0-2) Urine WBC 1-4 /HPF (0-4) Urine Squamous Epithelial Cells Mod /LPF Urine Bacteria Few /HPF (0-FEW) Urine Mucus Marked /LPF Laboratory Tests Test 03/21/19 01:38 03/21/19 02:40 White Blood Count 8.6 x10^3/uL (4.0-11.0) Red Blood Count 4.80 x10^6/uL (3.50-5.40) Hemoglobin 10.6 g/dL (12.0-15.5) Hematocrit 33.1 % (36.0-47.0) Mean Corpuscular Volume 69 fL (79-100) Mean Corpuscular Hemoglobin 22 pg (25-35) Mean Corpuscular Hemoglobin Concent 32 g/dL (31-37) Red Cell Distribution Width 17.6 % (11.5-14.5) Platelet Count 346 x10^3/uL (140-400) Neutrophils (%) (Auto) 55 % (31-73) Lymphocytes (%) (Auto) 37 % (24-48) Monocytes (%) (Auto) 6 % (0-9) Eosinophils (%) (Auto) 1 % (0-3) Basophils (%) (Auto) 1 % (0-3) Neutrophils # (Auto) 4.8 x10^3/uL (1.8-7.7) Lymphocytes # (Auto) 3.2 x10^3/uL (1.0-4.8) Monocytes # (Auto) 0.5 x10^3/uL (0.0-1.1) Eosinophils # (Auto) 0.0 x10^3/uL (0.0-0.7) Basophils # (Auto) 0.1 x10^3/uL (0.0-0.2) Platelet Estimate Adequate (ADEQUATE) Hypochromasia Mod Anisocytosis Slight Microcytosis Marked Tear Drop Cells Occ Ovalocytes Few Sodium Level 141 mmol/L (136-145) Potassium Level 3.7 mmol/L (3.5-5.1) Chloride Level 101 mmol/L (98-107) Carbon Dioxide Level 29 mmol/L (21-32) Anion Gap 11 (6-14) Blood Urea Nitrogen 7 mg/dL (7-20) Creatinine 0.7 mg/dL (0.6-1.0) Estimated GFR (Cockcroft-Gault) 96.4 BUN/Creatinine Ratio 10 (6-20) Glucose Level 105 mg/dL (70-99) Calcium Level 9.1 mg/dL (8.5-10.1) Total Bilirubin 0.3 mg/dL (0.2-1.0) Aspartate Amino Transf (AST/SGOT) 58 U/L (15-37) Alanine Aminotransferase (ALT/SGPT) 53 U/L (14-59) Alkaline Phosphatase 94 U/L (46-116) Total Protein 8.2 g/dL (6.4-8.2) Albumin 3.4 g/dL (3.4-5.0) Albumin/Globulin Ratio 0.7 (1.0-1.7) Lipase 133 U/L (73-393) Urine Collection Type Unknown Urine Color Magdalena Urine Clarity Clear Urine pH 5.5 Urine Specific [place] 1.025 Urine Protein Negative mg/dL (NEG-TRACE) Urine Glucose (UA) Negative mg/dL (NEG) Urine Ketones (Stick) Trace mg/dL (NEG) Urine Blood Negative (NEG) Urine Nitrite Negative (NEG) Urine Bilirubin Negative (NEG) Urine Urobilinogen Dipstick 1.0 mg/dL (0.2 mg/dL) Urine Leukocyte Esterase Negative (NEG) Urine RBC 0 /HPF (0-2) Urine WBC 1-4 /HPF (0-4) Urine Squamous Epithelial Cells Mod /LPF Urine Bacteria Few /HPF (0-FEW) Urine Mucus Marked /LPF Images Images RUQ us - * Gallstones are identified. A large portion of the gallbladder wall is not seen secondary to shadowing from the gallstones but visualized portion appears mildly thickened. The patient also does have some pain in the right upper quadrant the abdomen. Given this constellation of findings causes such as cholecystitis is not excluded on this examination and if further imaging evaluation is desired nuclear hepatobiliary scan could further evaluate. * The liver is echogenic. Nonspecific but can be seen with fatty infiltration VTE Prophylaxis Ordered VTE Prophylaxis Devices: No VTE Pharmacological Prophylaxi: No Assessment/Plan Assessment/Plan A/P: N/V - likely from calculous cholecystitis, have d/w general surgery who recommend lap sarah. NPO. Pain control. IV anti-emetics Abdominal pain - from above most likely Mild transaminitis - likely NAFLD. Monitor PCOS - metformin therapy DM2 - sliding scale while in house Hypothyroidism - will cont meds Anemia - microcytic, will check iron studies FEN - NPO PPX - ambulatory FULL CODE Dispo - inpatient for nausea and vomiting ALEX WAYNE MD Mar 21, 2019 10:51
[2019-03-21] MEDS: CITALOPRAM 20 MG TABLET. PO SCH (11:00)
[2019-03-21] MEDS ORDERED: PROCHLORPERAZINE 10 MG/2 ML VIAL. IV PRN (11:00)
[2019-03-21] MEDS ORDERED: DEXTROSE 50% 25 GM / 50ML DISP.SYRIN. IV PRN (11:00)
[2019-03-21] MEDS ORDERED: ACETAMINOPHEN 500 MG TABLET PO PRN (11:00)
[2019-03-21 11:02] VITALS: BP 120/77
[2019-03-21] MEDS ORDERED: PROMETHAZINE 12.5 MG TABLET. PO PRN (11:15)
[2019-03-21] MEDS: INSULIN LISPRO 300 UNITS/3 ML VIAL. SQ SCH ×2 (12:00→17:00)
--- NOTE | 2019-03-21 13:07 | PDOC2 ---
CONSULT Date of Consult Date of Consult DATE: 03/21/19 TIME: 13:05 History of Present Illness Reason for Visit: The patient is a 34 year old female who reported to the hospital due to abdominal pain. The pain has been located in the RUQ with radiation to the back. The pain started around 5 days ago and has been persistent. She reports associated vomiting. Past Medical History Past Medical History morbid obesity, PCOS, DM II Past Surgical History Past Surgical History denies Social History No ALCOHOL: none Current Problem List Problem List Problems Medical Problems: (1) Acute cholecystitis Status: Acute (2) Chronic anemia Status: Acute (3) Morbid obesity Status: Acute (4) Nausea and vomiting Status: Acute Current Medications Current Medications Current Medications Sodium Chloride 1,000 ml @ 1,000 mls/hr Q1H IV Last administered on 03/21/19at 02:10; Start 03/21/19 at 01:45; Stop 03/21/19 at 02:44; Status DC Ondansetron HCl (Zofran) 4 mg 1X ONCE IV Last administered on 03/21/19at 02:21; Start 03/21/19 at 02:00; Stop 03/21/19 at 02:01; Status DC Ketorolac Tromethamine (Toradol 30mg Vial) 30 mg 1X ONCE IV ; Start 03/21/19 at 02:00; Stop 03/21/19 at 02:01; Status DC Morphine Sulfate (Morphine Sulfate) 4 mg 1X ONCE IV Last administered on 03/21/19at 03:31; Start 03/21/19 at 03:30; Stop 03/21/19 at 03:31; Status DC Morphine Sulfate (Morphine Sulfate) 4 mg PRN Q2HR PRN IV PAIN Last administered on 03/21/19at 05:26; Start 03/21/19 at 03:15; Stop 03/21/19 at 09:00; Status DC Sodium Chloride 1,000 ml @ 150 mls/hr Q6H40M IV Last administered on 03/21/19at 04:15; Start 03/21/19 at 03:15; Stop 03/22/19 at 03:14 Ondansetron HCl (Zofran) 4 mg PRN Q6HRS PRN IVP NAUSEA/VOMITING Last administered on 03/21/19at 07:22; Start 03/21/19 at 07:15 Acetaminophen (Tylenol) 500 mg PRN Q6HRS PRN PO HEADACHE/PAIN; Start 03/21/19 at 11:00 Levothyroxine Sodium (Synthroid) 75 mcg DAILY06 PO ; Start 03/21/19 at 10:30 Citalopram Hydrobromide (CeleXA) 40 mg DAILY PO ; Start 03/21/19 at 11:00 Prochlorperazine Edisylate (Compazine) 10 mg PRN Q6HRS PRN IV NAUSEA/VOMITING; Start 03/21/19 at 11:00 Insulin Human Lispro (HumaLOG) 0-5 UNITS TIDWMEALS SQ ; Start 03/21/19 at 12:00 Dextrose (Dextrose 50%-Water Syringe) 12.5 gm PRN Q15MIN PRN IV SEE COMMENTS; Start 03/21/19 at 11:00 Promethazine HCl (Phenergan) 12.5 mg PRN Q6HRS PRN PO NAUSEA/VOMITING; Start 03/21/19 at 11:15 Active Scripts Active Reported Lexapro (Escitalopram Oxalate) 20 Mg Tablet 1 Tab PO DAILY Hydrocodone-Apap 5-325 (Hydrocodone Bit/Acetaminophen) 1 Tab Tablet 1-2 Tab PO PRN Q6HRS PRN LAST DOSE GIVEN: at so next dose at as needed for pain. Tylenol Extra Strength (Acetaminophen) 500 Mg Tablet 500 Mg PO PRN PRN Multivitamins (Multivitamin) 1 Each Tablet 1 Tab PO DAILY Synthroid (Levothyroxine Sodium) 75 Mcg Tablet 1 Tab PO DAILY Metformin Hcl 500 Mg Tablet 1,000 Mg PO BIDWMEALS Allergies Allergies: Coded Allergies: ketorolac (Verified Allergy, Unknown, 03/21/19) ROS General: No: Chills, Night Sweats, Fatigue, Malaise, Appetite, Other PSYCHOLOGICAL ROS: No: Anxiety, Behavioral Disorder, Concentration difficultie, Decreased libido, Depression, Disorientation, Hallucinations, Hostility, Irritablity, Memory difficulties, Mood Swings, Obsessive thoughts, Physical abuse, Sexual abuse, Sleep disturbances, Suicidal ideation, Other Eyes: No Blurry vision, No Decreased vision, No Double vision, No Dry eyes, No Excessive tearing, No Eye Pain, No Itchy Eyes, No Loss of vision, No Photophobia, No Scotomata, No Uses contacts, No Uses glasses, No Other HEENT: No: Heacaches, Visual Changes, Hearing change, Nasal congestion, Nasal discharge, Oral lesions, Sinus pain, Sore Throat, Epistaxis, Sneezing, Snoring, Tinnitus, Vertigo, Vocal changes, Other ALLERGY AND IMMUNOLOGY: No: Hives, Insect Bite Sensitivity, Itchy/Watery Eyes, Nasal Congestion, Post Nasal Drip, Seasonal Allergies, Other Hematological and Lymphatic: No: Bleeding Problems, Blood Clots, Blood Tra nsfusions, Brusing, Night Sweats, Pallor, Swollen Lymph Nodes, Other ENDOCRINE: No: Breast Changes, Galactorrhea, Hair Pattern Changes, Hot Flashes, Malaise/lethargy, Mood Swings, Palpitations, Polydipsia/polyuria, Skin Changes, Temperature Intolerance, Unexpected Weight Changes, Other Respiratory: No: Cough, Hemoptysis, Orthopnea, Pleuritic Pain, Shortness of breath, SOB with excertion, Sputum Changes, Stridor, Tachypnea, Wheezing, Other Cardiovascular: No Chest Pain, No Palpitations, No Orthopnea, No Paroxysmal Noc. Dyspnea, No Edema, No Lt Headedness, No Other Gastrointestinal: Yes Vomiting, Yes Abdominal Pain Genitourinary: No Dysuria, No Frequency, No Incontinence, No Hematuria, No Retention, No Discharge, No Urgency, No Pain, No Flank Pain, No Other, No , No , No , No , No , No , No Musculoskeletal: No Gait Disturbance, No Joint Pain, No Joint Stiffness, No Joint Swelling, No Muscle Pain, No Muscular Weakness, No Pain In:, No Swelling In:, No Other Neurological: No Behavorial Changes, No Bowel/Bladder ControlChng, No Confusion, No Dizziness, No Gait Disturbance, No Headaches, No Impaired Coord/balance, No Memory Loss, No Numbness/Tingling, No Seizures, No Speech Problems, No Tremors, No Visual Changes, No Weakness, No Other Skin: No Dry Skin, No Eczema, No Hair Changes, No Lumps, No Mole Changes, No Mottling, No Nail Changes, No Pruritus, No Rash, No Skin Lesion Changes, No Other, No Acne Physical Exam General: Alert, Oriented X3, Cooperative, No acute distress HEENT: Atraumatic Lungs: Clear to auscultation Heart: Regular rate Abdomen: Soft (morbidly obese, tender with palpation in RUQ) Extremities: No clubbing, No cyanosis Skin: No breakdown Neuro: Normal speech Psych/Mental Status: Mental status NL MUSCULOSKELETAL: No joint tenderness Vitals VITALS Vital Signs Date Time Temp Pulse Resp B/P (MAP) Pulse Ox O2 Delivery O2 Flow Rate FiO2 03/21/19 11:02 97.5 80 120/77 (91) 95 Room Air 97.5 03/21/19 07:20 18 Labs Labs Laboratory Tests Test 03/21/19 01:38 03/21/19 02:40 03/21/19 11:01 White Blood Count 8.6 x10^3/uL (4.0-11.0) Red Blood Count 4.80 x10^6/uL (3.50-5.40) Hemoglobin 10.6 g/dL (12.0-15.5) Hematocrit 33.1 % (36.0-47.0) Mean Corpuscular Volume 69 fL (79-100) Mean Corpuscular Hemoglobin 22 pg (25-35) Mean Corpuscular Hemoglobin Concent 32 g/dL (31-37) Red Cell Distribution Width 17.6 % (11.5-14.5) Platelet Count 346 x10^3/uL (140-400) Neutrophils (%) (Auto) 55 % (31-73) Lymphocytes (%) (Auto) 37 % (24-48) Monocytes (%) (Auto) 6 % (0-9) Eosinophils (%) (Auto) 1 % (0-3) Basophils (%) (Auto) 1 % (0-3) Neutrophils # (Auto) 4.8 x10^3/uL (1.8-7.7) Lymphocytes # (Auto) 3.2 x10^3/uL (1.0-4.8) Monocytes # (Auto) 0.5 x10^3/uL (0.0-1.1) Eosinophils # (Auto) 0.0 x10^3/uL (0.0-0.7) Basophils # (Auto) 0.1 x10^3/uL (0.0-0.2) Platelet Estimate Adequate (ADEQUATE) Hypochromasia Mod Anisocytosis Slight Microcytosis Marked Tear Drop Cells Occ Ovalocytes Few Sodium Level 141 mmol/L (136-145) Potassium Level 3.7 mmol/L (3.5-5.1) Chloride Level 101 mmol/L (98-107) Carbon Dioxide Level 29 mmol/L (21-32) Anion Gap 11 (6-14) Blood Urea Nitrogen 7 mg/dL (7-20) Creatinine 0.7 mg/dL (0.6-1.0) Estimated GFR (Cockcroft-Gault) 96.4 BUN/Creatinine Ratio 10 (6-20) Glucose Level 105 mg/dL (70-99) Calcium Level 9.1 mg/dL (8.5-10.1) Total Bilirubin 0.3 mg/dL (0.2-1.0) Aspartate Amino Transf (AST/SGOT) 58 U/L (15-37) Alanine Aminotransferase (ALT/SGPT) 53 U/L (14-59) Alkaline Phosphatase 94 U/L (46-116) Total Protein 8.2 g/dL (6.4-8.2) Albumin 3.4 g/dL (3.4-5.0) Albumin/Globulin Ratio 0.7 (1.0-1.7) Lipase 133 U/L (73-393) Urine Collection Type Unknown Urine Color Magdalena Urine Clarity Clear Urine pH 5.5 Urine Specific [place] 1.025 Urine Protein Negative mg/dL (NEG-TRACE) Urine Glucose (UA) Negative mg/dL (NEG) Urine Ketones (Stick) Trace mg/dL (NEG) Urine Blood Negative (NEG) Urine Nitrite Negative (NEG) Urine Bilirubin Negative (NEG) Urine Urobilinogen Dipstick 1.0 mg/dL (0.2 mg/dL) Urine Leukocyte Esterase Negative (NEG) Urine RBC 0 /HPF (0-2) Urine WBC 1-4 /HPF (0-4) Urine Squamous Epithelial Cells Mod /LPF Urine Bacteria Few /HPF (0-FEW) Urine Mucus Marked /LPF Glucose (Fingerstick) 147 mg/dL (70-99) Laboratory Tests Test 03/21/19 01:38 03/21/19 02:40 03/21/19 11:01 White Blood Count 8.6 x10^3/uL (4.0-11.0) Red Blood Count 4.80 x10^6/uL (3.50-5.40) Hemoglobin 10.6 g/dL (12.0-15.5) Hematocrit 33.1 % (36.0-47.0) Mean Corpuscular Volume 69 fL (79-100) Mean Corpuscular Hemoglobin 22 pg (25-35) Mean Corpuscular Hemoglobin Concent 32 g/dL (31-37) Red Cell Distribution Width 17.6 % (11.5-14.5) Platelet Count 346 x10^3/uL (140-400) Neutrophils (%) (Auto) 55 % (31-73) Lymphocytes (%) (Auto) 37 % (24-48) Monocytes (%) (Auto) 6 % (0-9) Eosinophils (%) (Auto) 1 % (0-3) Basophils (%) (Auto) 1 % (0-3) Neutrophils # (Auto) 4.8 x10^3/uL (1.8-7.7) Lymphocytes # (Auto) 3.2 x10^3/uL (1.0-4.8) Monocytes # (Auto) 0.5 x10^3/uL (0.0-1.1) Eosinophils # (Auto) 0.0 x10^3/uL (0.0-0.7) Basophils # (Auto) 0.1 x10^3/uL (0.0-0.2) Platelet Estimate Adequate (ADEQUATE) Hypochromasia Mod Anisocytosis Slight Microcytosis Marked Tear Drop Cells Occ Ovalocytes Few Sodium Level 141 mmol/L (136-145) Potassium Level 3.7 mmol/L (3.5-5.1) Chloride Level 101 mmol/L (98-107) Carbon Dioxide Level 29 mmol/L (21-32) Anion Gap 11 (6-14) Blood Urea Nitrogen 7 mg/dL (7-20) Creatinine 0.7 mg/dL (0.6-1.0) Estimated GFR (Cockcroft-Gault) 96.4 BUN/Creatinine Ratio 10 (6-20) Glucose Level 105 mg/dL (70-99) Calcium Level 9.1 mg/dL (8.5-10.1) Total Bilirubin 0.3 mg/dL (0.2-1.0) Aspartate Amino Transf (AST/SGOT) 58 U/L (15-37) Alanine Aminotransferase (ALT/SGPT) 53 U/L (14-59) Alkaline Phosphatase 94 U/L (46-116) Total Protein 8.2 g/dL (6.4-8.2) Albumin 3.4 g/dL (3.4-5.0) Albumin/Globulin Ratio 0.7 (1.0-1.7) Lipase 133 U/L (73-393) Urine Collection Type Unknown Urine Color Magdalena Urine Clarity Clear Urine pH 5.5 Urine Specific [place] 1.025 Urine Protein Negative mg/dL (NEG-TRACE) Urine Glucose (UA) Negative mg/dL (NEG) Urine Ketones (Stick) Trace mg/dL (NEG) Urine Blood Negative (NEG) Urine Nitrite Negative (NEG) Urine Bilirubin Negative (NEG) Urine Urobilinogen Dipstick 1.0 mg/dL (0.2 mg/dL) Urine Leukocyte Esterase Negative (NEG) Urine RBC 0 /HPF (0-2) Urine WBC 1-4 /HPF (0-4) Urine Squamous Epithelial Cells Mod /LPF Urine Bacteria Few /HPF (0-FEW) Urine Mucus Marked /LPF Glucose (Fingerstick) 147 mg/dL (70-99) Assessment/Plan Assessment/Plan Calculous cholecystitis, recommend lap sarah, will contact OR to schedule TUCKER VALERO MD Mar 21, 2019 13:07
[2019-03-21] MEDS: PIPERACILLIN/TAZOBACTAM 3.375 GM in IV NORMAL SALINE 50ML 50 ML IV SCH ×2 (13:47→18:40)
[2019-03-21 15:23] VITALS: BP 119/67
[2019-03-21] MEDS ORDERED: PIPERACILLIN/TAZOBACTAM 3.375 GM in IV NORMAL SALINE 50ML 50 ML IV SCH (18:00)
[2019-03-21 19:00] VITALS: BP 116/76
[2019-03-21] MEDS ORDERED: METOCLOPRAMIDE HCL 10 MG/2 ML VIAL. IVP PRN (19:00)
[2019-03-21 23:00] VITALS: BP 117/65
[2019-03-22] VITALS (13 sets, daily range): BP systolic 126–151; BP diastolic 65–87
[2019-03-22] MEDS: PIPERACILLIN/TAZOBACTAM 3.375 GM in IV NORMAL SALINE 50ML 50 ML IV SCH ×4 (00:01→17:39)
[2019-03-22] MEDS: IV NORMAL SALINE 1000ML BAG 1,000 ML IV SCH (00:04)
[2019-03-22 05:28] LABS: ALBUMIN 3.1 g/dL (3.4-5.0); ALBUMIN/GLOBULIN RATIO 0.7 (1.0-1.7); CALCIUM 8.7 mg/dL (8.5-10.1); CREATININE 0.7 mg/dL (0.6-1.0); GFR 96.4; POTASSIUM 3.5 mmol/L (3.5-5.1); TOTAL BILIRUBIN 2.6 mg/dL (0.2-1.0); TOTAL PROTEIN 7.5 g/dL (6.4-8.2)
[2019-03-22] MEDS: LEVOTHYROXINE 75 MCG TABLET PO SCH (06:00)
--- NOTE | 2019-03-22 07:27 | PDOC ---
PROGRESS NOTES Chief Complaint Chief Complaint A/P: N/V - likely from calculous cholecystitis, have d/w general surgery who recommend lap sarah. NPO. Pain control. IV anti-emetics Acute cholecystitis - with Abdominal pain - from above most likely. Will continue zosyn Mild transaminitis - likely NAFLD. Monitor PCOS - metformin therapy DM2 - sliding scale while in house Hypothyroidism - will cont meds Anemia - microcytic, will check iron studies FEN - NPO PPX - ambulatory FULL CODE Dispo - inpatient for nausea and vomiting History of Present Illness History of Present Illness Ms Addison is a 34 yo F w/ PMHx morbid obesity, type 2 diabetes mellitus, PCOS and anemia who presents with complaining of abdominal pain. Patient complaining of epigastric pain with radiation to her back for the last 4 days as a constant pain and rated her pain 8/10. Patient states she had nausea and 2 or 3 episodes of vomiting every day without diarrhea and constipation, fever and chills, urinary symptoms, vaginal bleeding or . Patient denies the pain does not change with eating or activity and denies history of the same pain. Overnight more nausea not remitting with zofran or phenergan, given reglan. LFTs bumped today, bilirubin and alkaline phosphatase up. Vitals Vitals Vital Signs Date Time Temp Pulse Resp B/P (MAP) Pulse Ox O2 Delivery O2 Flow Rate FiO2 03/22/19 03:00 97.4 91 18 126/67 (86) 96 Room Air 97.4 Physical Exam General: Alert, Oriented X3, Cooperative, mild distress Heart: Regular rate Abdomen: Normal bowel sounds, Soft, No hepatosplenomegaly, No masses, Other (RUQ tender) Extremities: No clubbing, No cyanosis, No edema, Normal pulses, No tenderness/swelling Skin: No rashes, No breakdown, No significant lesion Labs LABS Laboratory Tests Test 03/21/19 11:01 03/21/19 17:08 03/21/19 20:26 03/22/19 04:00 Glucose (Fingerstick) 147 mg/dL (70-99) 100 mg/dL (70-99) 103 mg/dL (70-99) Sodium Level 141 mmol/L (136-145) Potassium Level 3.5 mmol/L (3.5-5.1) Chloride Level 105 mmol/L (98-107) Carbon Dioxide Level 26 mmol/L (21-32) Anion Gap 10 (6-14) Blood Urea Nitrogen 6 mg/dL (7-20) Creatinine 0.7 mg/dL (0.6-1.0) Estimated GFR (Cockcroft-Gault) 96.4 BUN/Creatinine Ratio 9 (6-20) Glucose Level 131 mg/dL (70-99) Calcium Level 8.7 mg/dL (8.5-10.1) Iron Level 25 ug/dL (50-170) Total Iron Binding Capacity 309 ug/dL (250-450) Iron Saturation 8 % (15-34) Total Bilirubin 2.6 mg/dL (0.2-1.0) Aspartate Amino Transf (AST/SGOT) 161 U/L (15-37) Alanine Aminotransferase (ALT/SGPT) 152 U/L (14-59) Alkaline Phosphatase 160 U/L (46-116) Total Protein 7.5 g/dL (6.4-8.2) Albumin 3.1 g/dL (3.4-5.0) Albumin/Globulin Ratio 0.7 (1.0-1.7) Thyroid Stimulating Hormone (TSH) 3.124 uIU/mL (0.358-3.74) Test 03/22/19 07:05 Glucose (Fingerstick) 127 mg/dL (70-99) Assessment and Plan Assessmemt and Plan Problems Medical Problems: (1) Acute cholecystitis Status: Acute (2) Chronic anemia Status: Acute (3) Morbid obesity Status: Acute (4) Nausea and vomiting Status: Acute Comment Review of Relevant I have reviewed the following items iza (where applicable) has been applied. Labs Laboratory Tests Test 03/21/19 01:38 03/21/19 02:40 03/21/19 11:01 03/21/19 17:08 White Blood Count 8.6 x10^3/uL (4.0-11.0) Red Blood Count 4.80 x10^6/uL (3.50-5.40) Hemoglobin 10.6 g/dL (12.0-15.5) Hematocrit 33.1 % (36.0-47.0) Mean Corpuscular Volume 69 fL (79-100) Mean Corpuscular Hemoglobin 22 pg (25-35) Mean Corpuscular Hemoglobin Concent 32 g/dL (31-37) Red Cell Distribution Width 17.6 % (11.5-14.5) Platelet Count 346 x10^3/uL (140-400) Neutrophils (%) (Auto) 55 % (31-73) Lymphocytes (%) (Auto) 37 % (24-48) Monocytes (%) (Auto) 6 % (0-9) Eosinophils (%) (Auto) 1 % (0-3) Basophils (%) (Auto) 1 % (0-3) Neutrophils # (Auto) 4.8 x10^3/uL (1.8-7.7) Lymphocytes # (Auto) 3.2 x10^3/uL (1.0-4.8) Monocytes # (Auto) 0.5 x10^3/uL (0.0-1.1) Eosinophils # (Auto) 0.0 x10^3/uL (0.0-0.7) Basophils # (Auto) 0.1 x10^3/uL (0.0-0.2) Platelet Estimate Adequate (ADEQUATE) Hypochromasia Mod Anisocytosis Slight Microcytosis Marked Tear Drop Cells Occ Ovalocytes Few Sodium Level 141 mmol/L (136-145) Potassium Level 3.7 mmol/L (3.5-5.1) Chloride Level 101 mmol/L (98-107) Carbon Dioxide Level 29 mmol/L (21-32) Anion Gap 11 (6-14) Blood Urea Nitrogen 7 mg/dL (7-20) Creatinine 0.7 mg/dL (0.6-1.0) Estimated GFR (Cockcroft-Gault) 96.4 BUN/Creatinine Ratio 10 (6-20) Glucose Level 105 mg/dL (70-99) Calcium Level 9.1 mg/dL (8.5-10.1) Total Bilirubin 0.3 mg/dL (0.2-1.0) Aspartate Amino Transf (AST/SGOT) 58 U/L (15-37) Alanine Aminotransferase (ALT/SGPT) 53 U/L (14-59) Alkaline Phosphatase 94 U/L (46-116) Total Protein 8.2 g/dL (6.4-8.2) Albumin 3.4 g/dL (3.4-5.0) Albumin/Globulin Ratio 0.7 (1.0-1.7) Lipase 133 U/L (73-393) Urine Collection Type Unknown Urine Color Magdalena Urine Clarity Clear Urine pH 5.5 Urine Specific [place] 1.025 Urine Protein Negative mg/dL (NEG-TRACE) Urine Glucose (UA) Negative mg/dL (NEG) Urine Ketones (Stick) Trace mg/dL (NEG) Urine Blood Negative (NEG) Urine Nitrite Negative (NEG) Urine Bilirubin Negative (NEG) Urine Urobilinogen Dipstick 1.0 mg/dL (0.2 mg/dL) Urine Leukocyte Esterase Negative (NEG) Urine RBC 0 /HPF (0-2) Urine WBC 1-4 /HPF (0-4) Urine Squamous Epithelial Cells Mod /LPF Urine Bacteria Few /HPF (0-FEW) Urine Mucus Marked /LPF Glucose (Fingerstick) 147 mg/dL (70-99) 100 mg/dL (70-99) Test 03/21/19 20:26 03/22/19 04:00 03/22/19 07:05 Glucose (Fingerstick) 103 mg/dL (70-99) 127 mg/dL (70-99) Sodium Level 141 mmol/L (136-145) Potassium Level 3.5 mmol/L (3.5-5.1) Chloride Level 105 mmol/L (98-107) Carbon Dioxide Level 26 mmol/L (21-32) Anion Gap 10 (6-14) Blood Urea Nitrogen 6 mg/dL (7-20) Creatinine 0.7 mg/dL (0.6-1.0) Estimated GFR (Cockcroft-Gault) 96.4 BUN/Creatinine Ratio 9 (6-20) Glucose Level 131 mg/dL (70-99) Calcium Level 8.7 mg/dL (8.5-10.1) Iron Level 25 ug/dL (50-170) Total Iron Binding Capacity 309 ug/dL (250-450) Iron Saturation 8 % (15-34) Total Bilirubin 2.6 mg/dL (0.2-1.0) Aspartate Amino Transf (AST/SGOT) 161 U/L (15-37) Alanine Aminotransferase (ALT/SGPT) 152 U/L (14-59) Alkaline Phosphatase 160 U/L (46-116) Total Protein 7.5 g/dL (6.4-8.2) Albumin 3.1 g/dL (3.4-5.0) Albumin/Globulin Ratio 0.7 (1.0-1.7) Thyroid Stimulating Hormone (TSH) 3.124 uIU/mL (0.358-3.74) Laboratory Tests Test 03/21/19 11:01 03/21/19 17:08 03/21/19 20:26 03/22/19 04:00 Glucose (Fingerstick) 147 mg/dL (70-99) 100 mg/dL (70-99) 103 mg/dL (70-99) Sodium Level 141 mmol/L (136-145) Potassium Level 3.5 mmol/L (3.5-5.1) Chloride Level 105 mmol/L (98-107) Carbon Dioxide Level 26 mmol/L (21-32) Anion Gap 10 (6-14) Blood Urea Nitrogen 6 mg/dL (7-20) Creatinine 0.7 mg/dL (0.6-1.0) Estimated GFR (Cockcroft-Gault) 96.4 BUN/Creatinine Ratio 9 (6-20) Glucose Level 131 mg/dL (70-99) Calcium Level 8.7 mg/dL (8.5-10.1) Iron Level 25 ug/dL (50-170) Total Iron Binding Capacity 309 ug/dL (250-450) Iron Saturation 8 % (15-34) Total Bilirubin 2.6 mg/dL (0.2-1.0) Aspartate Amino Transf (AST/SGOT) 161 U/L (15-37) Alanine Aminotransferase (ALT/SGPT) 152 U/L (14-59) Alkaline Phosphatase 160 U/L (46-116) Total Protein 7.5 g/dL (6.4-8.2) Albumin 3.1 g/dL (3.4-5.0) Albumin/Globulin Ratio 0.7 (1.0-1.7) Thyroid Stimulating Hormone (TSH) 3.124 uIU/mL (0.358-3.74) Test 03/22/19 07:05 Glucose (Fingerstick) 127 mg/dL (70-99) Medications Current Medications Sodium Chloride 1,000 ml @ 1,000 mls/hr Q1H IV Last administered on 03/21/19at 02:10; Start 03/21/19 at 01:45; Stop 03/21/19 at 02:44; Status DC Ondansetron HCl (Zofran) 4 mg 1X ONCE IV Last administered on 03/21/19at 02:21; Start 03/21/19 at 02:00; Stop 03/21/19 at 02:01; Status DC Ketorolac Tromethamine (Toradol 30mg Vial) 30 mg 1X ONCE IV ; Start 03/21/19 at 02:00; Stop 03/21/19 at 02:01; Status DC Morphine Sulfate (Morphine Sulfate) 4 mg 1X ONCE IV Last administered on 03/21/19at 03:31; Start 03/21/19 at 03:30; Stop 03/21/19 at 03:31; Status DC Morphine Sulfate (Morphine Sulfate) 4 mg PRN Q2HR PRN IV PAIN Last administered on 03/21/19at 05:26; Start 03/21/19 at 03:15; Stop 03/21/19 at 09:00; Status DC Sodium Chloride 1,000 ml @ 150 mls/hr Q6H40M IV Last administered on 03/22/19at 00:04; Start 03/21/19 at 03:15; Stop 03/22/19 at 03:14; Status DC Ondansetron HCl (Zofran) 4 mg PRN Q6HRS PRN IVP NAUSEA/VOMITING Last administered on 03/21/19at 19:48; Start 03/21/19 at 07:15 Acetaminophen (Tylenol) 500 mg PRN Q6HRS PRN PO HEADACHE/PAIN; Start 03/21/19 at 11:00 Levothyroxine Sodium (Synthroid) 75 mcg DAILY06 PO ; Start 03/21/19 at 10:30 Citalopram Hydrobromide (CeleXA) 40 mg DAILY PO ; Start 03/21/19 at 11:00 Prochlorperazine Edisylate (Compazine) 10 mg PRN Q6HRS PRN IV NAUSEA/VOMITING; Start 03/21/19 at 11:00 Insulin Human Lispro (HumaLOG) 0-5 UNITS TIDWMEALS SQ ; Start 03/21/19 at 12:00 Dextrose (Dextrose 50%-Water Syringe) 12.5 gm PRN Q15MIN PRN IV SEE COMMENTS; Start 03/21/19 at 11:00 Promethazine HCl (Phenergan) 12.5 mg PRN Q6HRS PRN PO NAUSEA/VOMITING Last administered on 03/21/19at 17:30; Start 03/21/19 at 11:15 Piperacillin Sod/ Tazobactam Sod 3.375 gm/Sodium Chloride 50 ml @ 100 mls/hr Q6HRS IV ; Start 03/21/19 at 18:00; Status UNV Piperacillin Sod/ Tazobactam Sod 3.375 gm/Sodium Chloride 50 ml @ 100 mls/hr Q6HRS IV Last administered on 03/22/19at 06:05; Start 03/21/19 at 13:15 Metoclopramide HCl (Reglan Vial) 10 mg PRN Q6HRS PRN IVP NAUSEA/VOMITING Last administered on 03/21/19at 19:19; Start 03/21/19 at 19:00 Active Scripts Active Reported Lexapro (Escitalopram Oxalate) 20 Mg Tablet 1 Tab PO DAILY Hydrocodone-Apap 5-325 (Hydrocodone Bit/Acetaminophen) 1 Tab Tablet 1-2 Tab PO PRN Q6HRS PRN LAST DOSE GIVEN: at so next dose at as needed for pain. Tylenol Extra Strength (Acetaminophen) 500 Mg Tablet 500 Mg PO PRN PRN Multivitamins (Multivitamin) 1 Each Tablet 1 Tab PO DAILY Synthroid (Levothyroxine Sodium) 75 Mcg Tablet 1 Tab PO DAILY Metformin Hcl 500 Mg Tablet 1,000 Mg PO BIDWMEALS Vitals/I & O Vital Sign - Last 24 Hours 03/21/19 03/21/19 03/21/19 03/21/19 08:00 11:02 15:23 19:00 Temp 97.5 97.4 97.3 97.5 97.4 97.3 Pulse 80 73 74 Resp 14 18 B/P (MAP) 120/77 (91) 119/67 (84) 116/76 (89) Pulse Ox 95 98 94 O2 Delivery Room Air Room Air Room Air Room Air 03/21/19 03/21/19 03/22/19 19:50 23:00 03:00 Temp 97.9 97.4 97.9 97.4 Pulse 81 91 Resp 18 18 B/P (MAP) 117/65 (82) 126/67 (86) Pulse Ox 95 96 O2 Delivery Room Air Room Air Room Air Intake and Output 03/21/19 03/21/19 03/22/19 15:00 23:00 07:00 Intake Total 100 ml 1900 ml Balance 100 ml 1900 ml ALEX WAYNE MD Mar 22, 2019 07:27
[2019-03-22] MEDS: INSULIN LISPRO 300 UNITS/3 ML VIAL. SQ SCH ×3 (07:33→17:00)
[2019-03-22] MEDS: CITALOPRAM 20 MG TABLET. PO SCH (09:00)
--- NOTE | 2019-03-22 09:00 | NUR ---
PATIENT REMAINS NPO AT THIS TIME, DENIES PAIN/DISCOMFORT, DENIES PAIN/DISCOMFORT, WANTS TO TAKE A SHOWER, WILL DISCONNECT IV FLUIDS FOR SHOWER. PATIENT SCHEDULED FOR A LAP HAFSA AT 11AM.
[2019-03-22] MEDS ORDERED: SURGICEL HEMOSTAT 4X8 EACH. ONE (09:25)
[2019-03-22] MEDS ORDERED: BUPIVACAINE MPF 0.5% 30 ML VIAL. ONE (09:25)
[2019-03-22] MEDS ORDERED: IOHEXOL 300 MG/ML 50 ML VIAL. ONE (09:25)
--- NOTE | 2019-03-22 11:00 | NUR ---
INSTRUCTIONS GIVEN TO PATIENT REGARDING INCENTIVE SPIROMETRY USE AFTER SURGERY, INCENTIVE SPIROMETRY GIVEN TO PATIENT WELL INSTRUCTIONS, PATIENT DEMONSTRATED LEARNING AND VERBALIZED UNDERSTANDING.
[2019-03-22] MEDS ORDERED: ONDANSETRON PF 4 MG/2 ML VIAL. ONE (11:20)
[2019-03-22] MEDS ORDERED: ROCURONIUM 50 MG/5 ML VIAL. ONE (11:20)
[2019-03-22] MEDS ORDERED: DEXAMETHASONE SOD PHOS 4 MG/ML VIAL ONE (11:20)
[2019-03-22] MEDS ORDERED: LIDOCAINE 2% PF 5 ML VIAL. ONE (11:20)
[2019-03-22] MEDS ORDERED: PROPOFOL 20 ML IV ONE (11:20)
[2019-03-22] MEDS ORDERED: MIDAZOLAM HCL/PF 2 MG/2 ML VIAL. ONE (11:20)
[2019-03-22] MEDS ORDERED: fentaNYL PF VIAL 100 MCG/2 ML VIAL ONE ×4 (11:20→14:31)
--- NOTE | 2019-03-22 11:47 | NUR ---
PATIENT LEAVES THE UNIT PER BED FOR SURGERY, EMOTIONAL SUPPORT GIVEN.
[2019-03-22 12:06] LABS: U PREG PATIENT NEGATIVE (NEG)
[2019-03-22] MEDS ORDERED: SUCCINYLCHOLINE 200 MG/10 ML VIAL. ONE (12:23)
[2019-03-22] MEDS ORDERED: DESFLURANE 61 TO 120 MINUTES IH ONE (12:55)
[2019-03-22] MEDS ORDERED: GLYCOPYRROLATE 1 MG/5 ML VIAL. ONE (12:56)
[2019-03-22] MEDS ORDERED: NEOSTIGMINE METHYLSULFATE 5 MG/5 ML SYRINGE. ONE (12:56)
--- NOTE | 2019-03-22 13:19 | RAD ---
Operative cholangiogram. HISTORY: Right upper quadrant pain, morbid obesity, cholelithiasis Images were obtained from an operative cholangiogram. Bile duct is normal in appearance. There is prompt flow of contrast into the duodenum. 2 images were saved to the PACS. 0.16 minutes of fluoroscopy were used for the study. Electronically signed by: Ney Morris MD (03/22/2019 1:16 PM) [id number]
--- NOTE | 2019-03-22 13:40 | PDOC4 ---
Operative Note Operative Note Operative Note: Preoperative Diagnosis: Calculus cholecystitis Postoperative Diagnosis: Same Procedure: Laparoscopic cholecystectomy with intraoperative cholangiogram Surgeons: Yakov Safety Specialist: Candy IVY Anesthesia: Gen. Estimated Blood Loss: 10 mL Specimen: Gallbladder to pathology Drains: None Complications: None Indications: The patient is a 34-year-old female who was admitted due to abdominal pain. Her evaluation is consistent with calculus cholecystitis. Surgical treatment was offered by means of a laparoscopic cholecystectomy. The risks of surgery were discussed which include bleeding, infection, bile duct injury, bile leak, pain, the potential for additional surgeries or procedures. The patient understands and would like to proceed. Description: The patient was taken to the operating room and laid supine on the operating table. General anesthesia was performed. The abdomen was prepped with ChloraPrep and draped in a standard surgical fashion. A small incision was made in the right abdomen through which a visualized 5 mm trocar was inserted. A pneumoperitoneum was created and the laparoscope was introduced. In the upper midabdomen an 11 mm trocar was inserted and in the right upper quadrant two 5 mm trochars were inserted. The gallbladder appeared acutely inflamed. The gallbladder was retracted cephalad. The cystic duct was dissected free from surrounding tissues. One clip was placed on the duct near the gallbladder junction. An opening was made in the duct and a cholangiocatheter placed within and secured with a clip. Using contrast dye and fluoroscopy an intraoperative cholangiogram was performed that appeared unremarkable. The clip and catheter were then withdrawn. Three clips were placed on the cystic duct and it was divided. The cystic artery was then identified, dissected free, doubly clipped and divided as well. The gallbladder was then mobilized away from the liver with cautery. The umbilical 5 millimeter trocar was exchanged for an 11 millimeter trocar. The gallbladder was then placed in an endoscopic bag and ext racted at the superior trocar site. The fascia there was closed with 0 PDS sutures. All blood and irrigation fluid was suctioned and hemostasis was good. The remaining ports were removed and the pneumoperitoneum was relieved. The skin incisions were closed using 4-0 Monocryl suture. Steri-Strips and dressings were then applied. The patient tolerated the procedure well and was sent to the recovery room in stable condition. At the end of the case all counts were correct. TUCKER VALERO MD Mar 22, 2019 13:40
[2019-03-22] MEDS ORDERED: oxyCODONE/APAP 5/325 1 TAB TABLET PO PRN ×2 (13:45)
[2019-03-22] MEDS ORDERED: MORPHINE SULFATE 2 MG/ML VIAL. ONE (14:05)
[2019-03-22] MEDS: MORPHINE SULFATE 2 MG/ML VIAL. IV PRN ×3 (14:08→20:00)
[2019-03-22] MEDS: fentaNYL PF VIAL 100 MCG/2 ML VIAL IV PRN ×5 (14:08→17:36)
[2019-03-22] MEDS ORDERED: IV RINGERS,LACTATED 1000ML 1,000 ML IV SCH (14:11)
[2019-03-22] MEDS ORDERED: HYDROmorphone 2 MG/ML VIAL IV PRN (14:15)
[2019-03-22] MEDS ORDERED: PROCHLORPERAZINE 10 MG/2 ML VIAL. IV PRN (14:15)
[2019-03-22] MEDS ORDERED: ONDANSETRON PF 4 MG/2 ML VIAL. IVP PRN (14:15)
[2019-03-22] MEDS ORDERED: MORPHINE SULFATE 2 MG/ML VIAL. IV PRN (14:15)
[2019-03-22] MEDS ORDERED: fentaNYL PF VIAL 100 MCG/2 ML VIAL IV PRN ×2 (14:15)
[2019-03-23] MEDS: PIPERACILLIN/TAZOBACTAM 3.375 GM in IV NORMAL SALINE 50ML 50 ML IV SCH ×3 (00:05→12:23)
[2019-03-23] MEDS: MORPHINE SULFATE 2 MG/ML VIAL. IV PRN (00:53)
[2019-03-23 03:00] VITALS: BP 131/76
[2019-03-23] MEDS: LEVOTHYROXINE 75 MCG TABLET PO SCH (05:50)
--- NOTE | 2019-03-23 08:23 | PDOC ---
PROGRESS NOTES Chief Complaint Chief Complaint A/P: N/V - likely from calculous cholecystitis, have d/w general surgery who performed lap sarah with large 2cm stone on 03/22/19 Acute cholecystitis - with Abdominal pain - from above most likely. Will d/c antibiotics Mild transaminitis - likely NAFLD. Monitor PCOS - metformin therapy DM2 - sliding scale while in house Hypothyroidism - will cont meds Anemia - microcytic, checked iron studies History of Present Illness History of Present Illness Ms Addison is a 34 yo F w/ PMHx morbid obesity, type 2 diabetes mellitus, PCOS and anemia who presents with complaining of abdominal pain. Patient complaining of epigastric pain with radiation to her back for the last 4 days as a constant pain and rated her pain 8/10. Patient states she had nausea and 2 or 3 episodes of vomiting every day without diarrhea and constipation, fever and chills, urinary symptoms, vaginal bleeding or . Patient denies the pain does not change with eating or activity and denies history of the same pain. 03/22: Overnight more nausea not remitting with zofran or phenergan, given reglan. LFTs bumped today, bilirubin and alkaline phosphatase up. Lap sarah. Feeling better post-operatively, passing flatus, ate full 3 meals. Pain reasonably controlled on hydrocodone. She is ready to go, just asking for [facility] paperwork. Vitals Vitals Vital Signs Date Time Temp Pulse Resp B/P (MAP) Pulse Ox O2 Delivery O2 Flow Rate FiO2 03/23/19 03:00 97.9 88 20 131/76 (94) 100 Room Air 97.9 03/22/19 18:15 2.0 Physical Exam General: Alert, Oriented X3, Cooperative, mild distress Heart: Regular rate Abdomen: Normal bowel sounds, Soft, No hepatosplenomegaly, No masses, Other (RUQ tender) Extremities: No clubbing, No cyanosis, No edema, Normal pulses, No tenderness /swelling Skin: No rashes, No breakdown, No significant lesion Labs LABS Laboratory Tests Test 03/22/19 11:22 03/22/19 13:54 03/22/19 16:38 03/22/19 20:53 Glucose (Fingerstick) 122 mg/dL (70-99) 134 mg/dL (70-99) 132 mg/dL (70-99) 160 mg/dL (70-99) Test 03/23/19 07:39 Glucose (Fingerstick) 153 mg/dL (70-99) Assessment and Plan Assessmemt and Plan Problems Medical Problems: (1) Acute cholecystitis Status: Acute (2) Chronic anemia Status: Acute (3) Morbid obesity Status: Acute (4) Nausea and vomiting Status: Acute Comment Review of Relevant I have reviewed the following items iza (where applicable) has been applied. Labs Laboratory Tests Test 03/21/19 11:01 03/21/19 17:08 03/21/19 20:26 03/22/19 04:00 Glucose (Fingerstick) 147 mg/dL (70-99) 100 mg/dL (70-99) 103 mg/dL (70-99) Sodium Level 141 mmol/L (136-145) Potassium Level 3.5 mmol/L (3.5-5.1) Chloride Level 105 mmol/L (98-107) Carbon Dioxide Level 26 mmol/L (21-32) Anion Gap 10 (6-14) Blood Urea Nitrogen 6 mg/dL (7-20) Creatinine 0.7 mg/dL (0.6-1.0) Estimated GFR (Cockcroft-Gault) 96.4 BUN/Creatinine Ratio 9 (6-20) Glucose Level 131 mg/dL (70-99) Calcium Level 8.7 mg/dL (8.5-10.1) Iron Level 25 ug/dL (50-170) Total Iron Binding Capacity 309 ug/dL (250-450) Iron Saturation 8 % (15-34) Total Bilirubin 2.6 mg/dL (0.2-1.0) Aspartate Amino Transf (AST/SGOT) 161 U/L (15-37) Alanine Aminotransferase (ALT/SGPT) 152 U/L (14-59) Alkaline Phosphatase 160 U/L (46-116) Total Protein 7.5 g/dL (6.4-8.2) Albumin 3.1 g/dL (3.4-5.0) Albumin/Globulin Ratio 0.7 (1.0-1.7) Thyroid Stimulating Hormone (TSH) 3.124 uIU/mL (0.358-3.74) Test 03/22/19 07:05 03/22/19 11:22 03/22/19 13:54 03/22/19 16:38 Glucose (Fingerstick) 127 mg/dL (70-99) 122 mg/dL (70-99) 134 mg/dL (70-99) 132 mg/dL (70-99) Test 03/22/19 20:53 03/23/19 07:39 Glucose (Fingerstick) 160 mg/dL (70-99) 153 mg/dL (70-99) Laboratory Tests Test 03/22/19 11:22 03/22/19 13:54 03/22/19 16:38 03/22/19 20:53 Glucose (Fingerstick) 122 mg/dL (70-99) 134 mg/dL (70-99) 132 mg/dL (70-99) 160 mg/dL (70-99) Test 03/23/19 07:39 Glucose (Fingerstick) 153 mg/dL (70-99) Medications Current Medications Sodium Chloride 1,000 ml @ 1,000 mls/hr Q1H IV Last administered on 03/21/19at 02:10; Start 03/21/19 at 01:45; Stop 03/21/19 at 02:44; Status DC Ondansetron HCl (Zofran) 4 mg 1X ONCE IV Last administered on 03/21/19at 02:21; Start 03/21/19 at 02:00; Stop 03/21/19 at 02:01; Status DC Ketorolac Tromethamine (Toradol 30mg Vial) 30 mg 1X ONCE IV ; Start 03/21/19 at 02:00; Stop 03/21/19 at 02:01; Status DC Morphine Sulfate (Morphine Sulfate) 4 mg 1X ONCE IV Last administered on 03/21/19at 03:31; Start 03/21/19 at 03:30; Stop 03/21/19 at 03:31; Status DC Morphine Sulfate (Morphine Sulfate) 4 mg PRN Q2HR PRN IV PAIN Last administered on 03/21/19at 05:26; Start 03/21/19 at 03:15; Stop 03/21/19 at 09:00; Status DC Sodium Chloride 1,000 ml @ 150 mls/hr Q6H40M IV Last administered on 03/22/19at 00:04; Start 03/21/19 at 03:15; Stop 03/22/19 at 03:14; Status DC Ondansetron HCl (Zofran) 4 mg PRN Q6HRS PRN IVP NAUSEA/VOMITING Last administered on 03/21/19at 19:48; Start 03/21/19 at 07:15 Acetaminophen (Tylenol) 500 mg PRN Q6HRS PRN PO HEADACHE/PAIN; Start 03/21/19 at 11:00 Levothyroxine Sodium (Synthroid) 75 mcg DAILY06 PO Last administered on 03/23/19at 05:50; Start 03/21/19 at 10:30 Citalopram Hydrobromide (CeleXA) 40 mg DAILY PO ; Start 03/21/19 at 11:00 Prochlorperazine Edisylate (Compazine) 10 mg PRN Q6HRS PRN IV NAUSEA/VOMITING; Start 03/21/19 at 11:00 Insulin Human Lispro (HumaLOG) 0-5 UNITS TIDWMEALS SQ ; Start 03/21/19 at 12:00 Dextrose (Dextrose 50%-Water Syringe) 12.5 gm PRN Q15MIN PRN IV SEE COMMENTS; Start 03/21/19 at 11:00 Promethazine HCl (Phenergan) 12.5 mg PRN Q6HRS PRN PO NAUSEA/VOMITING Last administered on 03/21/19at 17:30; Start 03/21/19 at 11:15 Piperacillin Sod/ Tazobactam Sod 3.375 gm/Sodium Chloride 50 ml @ 100 mls/hr Q6HRS IV ; Start 03/21/19 at 18:00; Status UNV Piperacillin Sod/ Tazobactam Sod 3.375 gm/Sodium Chloride 50 ml @ 100 mls/hr Q6HRS IV Last administered on 03/23/19at 05:50; Start 03/21/19 at 13:15 Metoclopramide HCl (Reglan Vial) 10 mg PRN Q6HRS PRN IVP NAUSEA/VOMITING Last administered on 03/21/19at 19:19; Start 03/21/19 at 19:00 Iohexol (Omnipaque 300 Mg/ml) 50 ml STK-MED ONCE .ROUTE Last administered on 03/22/19at 12:47; Start 03/22/19 at 09:25; Stop 03/22/19 at 09:25; Status DC Cellulose (Surgicel Hemostat 4x8) 1 each STK-MED ONCE .ROUTE ; Start 03/22/19 at 09:25; Stop 03/22/19 at 09:25; Status DC Bupivacaine HCl (Sensorcaine Mpf 0.5%) 30 ml STK-MED ONCE .ROUTE Last administered on 03/22/19at 12:47; Start 03/22/19 at 09:25; Stop 03/22/19 at 09:26; Status DC Propofol 20 ml @ As Directed STK-MED ONCE IV ; Start 03/22/19 at 11:20; Stop 03/22/19 at 11:20; Status DC Lidocaine HCl (Lidocaine Pf 2% Vial) 5 ml STK-MED ONCE .ROUTE ; Start 03/22/19 at 11:20; Stop 03/22/19 at 11:20; Status DC Ondansetron HCl (Zofran) 4 mg STK-MED ONCE .ROUTE ; Start 03/22/19 at 11:20; Stop 03/22/19 at 11:20; Status DC Dexamethasone Sodium Phosphate (Decadron) 4 mg STK-MED ONCE .ROUTE ; Start 03/22/19 at 11:20; Stop 03/22/19 at 11:20; Status DC Rocuronium Palmer (Zemuron) 50 mg STK-MED ONCE .ROUTE ; Start 03/22/19 at 11:20; Stop 03/22/19 at 11:20; Status DC Fentanyl Citrate (Fentanyl 2ml Vial) 100 mcg STK-MED ONCE .ROUTE ; Start 03/22/19 at 11:20; Stop 03/22/19 at 11:20; Status DC Midazolam HCl (Versed) 2 mg STK-MED ONCE .ROUTE ; Start 03/22/19 at 11:20; Stop 03/22/19 at 11:20; Status DC Succinylcholine Chloride (Anectine) 200 mg STK-MED ONCE .ROUTE ; Start 03/22/19 at 12:23; Stop 03/22/19 at 12:24; Status DC Desflurane (Suprane) 60 ml STK-MED ONCE IH ; Start 03/22/19 at 12:55; Stop at 12:56; Status DC Neostigmine Methylsulfate (Neostigmine Methylsulfate) 5 mg STK-MED ONCE .ROUTE ; Start 03/22/19 at 12:56; Stop 03/22/19 at 12:56; Status DC Glycopyrrolate (Robinul) 1 mg STK-MED ONCE .ROUTE ; Start 03/22/19 at 12:56; Stop 03/22/19 at 12:56; Status DC Fentanyl Citrate (Fentanyl 2ml Vial) 100 mcg STK-MED ONCE .ROUTE ; Start 03/22/19 at 13:06; Stop 03/22/19 at 13:06; Status DC Oxycodone/ Acetaminophen (Percocet 5/325) 1 tab PRN Q4HRS PRN PO PAIN MILD TO MOD; Start 03/22/19 at 13:45 Oxycodone/ Acetaminophen (Percocet 5/325) 2 tab PRN Q4HRS PRN PO PAIN SEVERE; Start 03/22/19 at 13:45 Morphine Sulfate (Morphine Sulfate) 2 mg STK-MED ONCE .ROUTE ; Start 03/22/19 at 14:05; Stop 03/22/19 at 14:05; Status DC Fentanyl Citrate (Fentanyl 2ml Vial) 100 mcg STK-MED ONCE .ROUTE ; Start 03/22/19 at 14:05; Stop 03/22/19 at 14:05; Status DC Fentanyl Citrate (Fentanyl 2ml Vial) 50 mcg PRN Q5MIN PRN IV MODERATE TO SEVERE PAIN Last administered on 03/22/19at 17:36; Start 03/22/19 at 14:15; Stop 03/23/19 at 14:14 Morphine Sulfate (Morphine Sulfate) 2 mg PRN Q10MIN PRN IV MILD PAIN 1-3 Last administered on 03/23/19at 00:53; Start 03/22/19 at 14:15; Stop 03/23/19 at 14:14 Prochlorperazine Edisylate (Compazine) 5 mg PRN Q6HRS PRN IV Nausea/Vomiting, 1st Choice; Start 03/22/19 at 14:15; Stop 03/23/19 at 14:14 Ondansetron HCl (Zofran) 4 mg PRN Q6HRS PRN IVP Nausea, 2nd Choice; Start 03/22/19 at 14:15; Stop 03/23/19 at 14:14 Fentanyl Citrate (Fentanyl 2ml Vial) 25 mcg PRN Q5MIN PRN IV MILD PAIN 1-3; Start 03/22/19 at 14:15; Stop 03/23/19 at 14:14 Fentanyl Citrate (Fentanyl 2ml Vial) 50 mcg PRN Q5MIN PRN IV MODERATE TO SEVERE PAIN; Start 03/22/19 at 14:15; Stop 03/23/19 at 14:14 Morphine Sulfate (Morphine Sulfate) 1 mg PRN Q10MIN PRN IV SEVERE PAIN 7-10; Start 03/22/19 at 14:15; Stop 03/23/19 at 14:14 Ringer's Solution 1,000 ml @ 30 mls/hr Q24H IV Last administered on 03/22/19at 12:15; Start 03/22/19 at 14:11; Stop 03/23/19 at 02:10; Status DC Hydromorphone HCl (Dilaudid) 0.5 mg PRN Q10MIN PRN IV SEV PAIN, Second choice; Start 03/22/19 at 14:15; Stop 03/23/19 at 14:14 Fentanyl Citrate (Fentanyl 2ml Vial) 100 mcg STK-MED ONCE .ROUTE ; Start 03/22/19 at 14:31; Stop 03/22/19 at 14:31; Status DC Active Scripts Active Reported Lexapro (Escitalopram Oxalate) 20 Mg Tablet 1 Tab PO DAILY Hydrocodone-Apap 5-325 (Hydrocodone Bit/Acetaminophen) 1 Tab Tablet 1-2 Tab PO PRN Q6HRS PRN LAST DOSE GIVEN: at so next dose at as needed for pain. Tylenol Extra Strength (Acetaminophen) 500 Mg Tablet 500 Mg PO PRN PRN Multivitamins (Multivitamin) 1 Each Tablet 1 Tab PO DAILY Synthroid (Levothyroxine Sodium) 75 Mcg Tablet 1 Tab PO DAILY Metformin Hcl 500 Mg Tablet 1,000 Mg PO BIDWMEALS Vitals/I & O Vital Sign - Last 24 Hours 03/22/19 03/22/19 03/22/19 03/22/19 11:10 13:40 13:40 13:55 Temp 97.6 98.0 97.6 98.0 Pulse 81 80 70 Resp 20 18 18 B/P (MAP) 141/79 (99) 143/66 137/71 Pulse Ox 96 94 98 O2 Delivery Room Air Mask Simple Mask Simple Mask O2 Flow Rate 8 8 8 03/22/19 03/22/19 03/22/19 03/22/19 14:08 14:08 14:10 14:19 Temp 98.0 98.0 Pulse 82 Resp 16 18 16 16 B/P (MAP) 128/72 Pulse Ox 92 94 93 94 O2 Delivery Room Air Room Air Room Air Nasal Cannula O2 Flow Rate 2.0 03/22/19 03/22/19 03/22/19 03/22/19 14:21 14:25 14:32 14:40 Temp 98.0 98.0 98.0 98.0 Pulse 74 70 Resp 18 16 14 16 B/P (MAP) 134/80 140/69 Pulse Ox 93 97 98 96 O2 Delivery Nasal Cannula Room Air Nasal Cannula Nasal Cannula O2 Flow Rate 2.0 2.0 2 03/22/19 03/22/19 03/22/19 03/22/19 14:43 14:43 14:59 15:15 Temp 97.8 97.8 Pulse 85 67 Resp 16 20 B/P (MAP) 128/79 (95) 151/83 (105) Pulse Ox 96 97 O2 Delivery Nasal Cannula Nasal Cannula Nasal Cannula Nasal Cannula O2 Flow Rate 2.0 2.0 2.0 2.0 03/22/19 03/22/19 03/22/19 03/22/19 15:30 15:45 16:00 16:30 Temp 97.2 97.9 97.2 97.9 Pulse 71 74 77 81 Resp 18 18 B/P (MAP) 135/85 (102) 142/84 (103) 138/74 (95) 140/65 (90) Pulse Ox 97 95 O2 Delivery Nasal Cannula Nasal Cannula Nasal Cannula O2 Flow Rate 2.0 2.0 2.0 03/22/19 03/22/19 03/22/19 03/22/19 17:00 17:36 18:15 19:15 Temp 97.6 97.9 97.6 97.9 Pulse 80 73 66 Resp 20 20 18 B/P (MAP) 136/77 (96) 144/73 (96) 126/81 (96) Pulse Ox 95 93 96 95 O2 Delivery Nasal Cannula Room Air Nasal Cannula Room Air O2 Flow Rate 2.0 2.0 03/22/19 03/22/19 03/22/19 03/22/19 19:40 20:00 20:30 23:08 Temp 98.0 98.0 Pulse 94 Resp 20 20 20 B/P (MAP) 151/87 (108) Pulse Ox 95 O2 Delivery Room Air Room Air Room Air Room Air 03/23/19 03/23/19 03/23/19 00:53 01:23 03:00 Temp 97.9 97.9 Pulse 88 Resp 20 18 20 B/P (MAP) 131/76 (94) Pulse Ox 100 O2 Delivery Room Air Room Air Room Air Intake and Output 03/22/19 03/22/19 03/23/19 15:00 23:00 07:00 Intake Total 1375 ml 120 ml 2300 ml Output Total 310 ml Balance 1065 ml 120 ml 2300 ml ALEX WAYNE MD Mar 23, 2019 08:23
[2019-03-23] MEDS: fentaNYL PF VIAL 100 MCG/2 ML VIAL IV PRN (09:19)
[2019-03-23] MEDS: CITALOPRAM 20 MG TABLET. PO SCH (09:20)
[2019-03-23] MEDS: INSULIN LISPRO 300 UNITS/3 ML VIAL. SQ SCH ×2 (09:25→12:00)
[2019-03-23 09:30] VITALS: BP 111/62
[2019-03-23 11:59] VITALS: BP 119/62
[2019-03-23] MEDS ORDERED: HYDR-2761 PO ×2 (14:11→18:35)
--- NOTE | 2019-03-23 14:15 | PDOC3 ---
Discharge Summary Visit Information Date of Admission: Mar 21, 2019 Date of Discharge: Mar 23, 2019 Admitting Diagnosis: Acute cholecystitis Final Diagnosis Problems Medical Problems: (1) Acute cholecystitis Status: Acute (2) Chronic anemia Status: Acute (3) Morbid obesity Status: Acute (4) Nausea and vomiting Status: Acute Brief Hospital Course Allergies Allergies Coded Allergies Type Severity Reaction Last Updated Verified ketorolac Allergy Unknown 03/21/19 Yes Vital Signs Vital Signs Date Time Temp Pulse Resp B/P (MAP) Pulse Ox O2 Delivery O2 Flow Rate FiO2 03/23/19 11:59 98.2 85 16 119/62 (81) 96 Room Air 98.2 03/23/19 08:00 2.0 Lab Results Laboratory Tests Test 03/21/19 17:08 03/21/19 20:26 03/22/19 04:00 03/22/19 07:05 Glucose (Fingerstick) 100 mg/dL (70-99) 103 mg/dL (70-99) 127 mg/dL (70-99) Sodium Level 141 mmol/L (136-145) Potassium Level 3.5 mmol/L (3.5-5.1) Chloride Level 105 mmol/L (98-107) Carbon Dioxide Level 26 mmol/L (21-32) Anion Gap 10 (6-14) Blood Urea Nitrogen 6 mg/dL (7-20) Creatinine 0.7 mg/dL (0.6-1.0) Estimated GFR (Cockcroft-Gault) 96.4 BUN/Creatinine Ratio 9 (6-20) Glucose Level 131 mg/dL (70-99) Calcium Level 8.7 mg/dL (8.5-10.1) Iron Level 25 ug/dL (50-170) Total Iron Binding Capacity 309 ug/dL (250-450) Iron Saturation 8 % (15-34) Total Bilirubin 2.6 mg/dL (0.2-1.0) Aspartate Amino Transf (AST/SGOT) 161 U/L (15-37) Alanine Aminotransferase (ALT/SGPT) 152 U/L (14-59) Alkaline Phosphatase 160 U/L (46-116) Total Protein 7.5 g/dL (6.4-8.2) Albumin 3.1 g/dL (3.4-5.0) Albumin/Globulin Ratio 0.7 (1.0-1.7) Thyroid Stimulating Hormone (TSH) 3.124 uIU/mL (0.358-3.74) Test 03/22/19 11:22 03/22/19 13:54 03/22/19 16:38 03/22/19 20:53 Glucose (Fingerstick) 122 mg/dL (70-99) 134 mg/dL (70-99) 132 mg/dL (70-99) 160 mg/dL (70-99) Test 03/23/19 07:39 03/23/19 12:24 Glucose (Fingerstick) 153 mg/dL (70-99) 148 mg/dL (70-99) Laboratory Tests Test 03/22/19 16:38 03/22/19 20:53 03/23/19 07:39 03/23/19 12:24 Glucose (Fingerstick) 132 mg/dL (70-99) 160 mg/dL (70-99) 153 mg/dL (70-99) 148 mg/dL (70-99) Brief Hospital Course Ms Addison is a 34 yo F w/ PMHx morbid obesity, type 2 diabetes mellitus, PCOS and anemia who presents with complaining of abdominal pain. Patient complaining of epigastric pain with radiation to her back for the last 4 days as a constant pain and rated her pain 8/10. Patient states she had nausea and 2 or 3 episodes of vomiting every day without diarrhea and constipation, fever and chills, urinary symptoms, vaginal bleeding or . Patient denies the pain does not change with eating or activity and denies history of the same pain. 03/22: Overnight more nausea not remitting with zofran or phenergan, given reglan. LFTs bumped today, bilirubin and alkaline phosphatase up. Lap sarah. Feeling better post-operatively, passing flatus, ate full 3 meals. Pain reasonably controlled on hydrocodone. She is ready to go, just asking for [facility] paperwork. A/P: N/V - likely from calculous cholecystitis, have d/w general surgery who performed lap sarah with large 2cm stone on 03/22/19 Acute cholecystitis - with Abdominal pain - from above most likely. Will d/c antibiotics Mild transaminitis - likely NAFLD. Monitor PCOS - metformin therapy DM2 - sliding scale while in house Hypothyroidism - will cont meds Anemia - microcytic, checked iron studies Greater than 30 minutes spent on d/c Discharge Information Condition at Discharge: Improved Follow Up: Weeks (1) Disposition/Orders: D/C to Home Scheduled Escitalopram Oxalate (Lexapro) 20 Mg Tablet, 1 TAB PO DAILY for Depression/Anxiety, #90 Ref 3 (Reported) Entered as Reported by: BARRETT CLEMENTE on 03/21/19501 Last Action: Converted on 03/21/191050 by ALEX AWYNE MD Levothyroxine Sodium (Synthroid) 75 Mcg Tablet, 1 TAB PO DAILY for HYPOTHYROID, #30 Ref 5 (Reported) Entered as Reported by: THEODORA STEVENS on 06/19/181901 Last Action: Continued on 03/21/191050 by ALEX WAYNE MD Metformin Hcl (Metformin Hcl) 500 Mg Tablet, 1,000 MG PO BIDWMEALS for ANTI- DIABETIC, Ref 0 (Reported) Entered as Reported by: THEODORA STEVENS on 06/19/181899 Last Action: Reviewed on 03/21/19501 by BARRETT CLEMENTE Multivitamin (Multivitamins) 1 Each Tablet, 1 TAB PO DAILY for SUPPLEMENT, #90 Ref 3 (Reported) Entered as Reported by: THEODORA STEVENS on 06/19/181902 Last Action: Reviewed on 03/21/19501 by BARRETT CLEMENTE Scheduled PRN Acetaminophen (Tylenol Extra Strength) 500 Mg Tablet, 500 MG PO PRN PRN for HEADACHE/PAIN, (Reported) Entered as Reported by: THEODORA STEVENS on 06/19/181902 Last Action: Continued on 03/21/191050 by ALEX WAYNE MD Hydrocodone Bit/Acetaminophen (Hydrocodone-Apap 5-325 ) 1 Tab Tablet, 1-2 TAB PO PRN Q6HRS PRN for PAIN for 6 Days, #20 Ref 0 Prescribed by: ALEX WAYNE MD on 03/23/19 1411 ALEX WAYNE MD Mar 23, 2019 14:15
--- NOTE | 2019-03-23 14:45 | PDOC ---
SURGICAL PROGRESS NOTE Subjective tolerating diet urinating incisional pain, pain right shoulder Vital Signs Vital Signs Date Time Temp Pulse Resp B/P (MAP) Pulse Ox O2 Delivery O2 Flow Rate FiO2 03/23/19 11:59 98.2 85 16 119/62 (81) 96 Room Air 98.2 03/23/19 08:00 2.0 I&O Intake and Output 03/23/19 07:00 Intake Total 3795 ml Output Total 310 ml Balance 3485 ml Intake Oral 1045 ml IV Total 2050 ml Other 700 ml Output Urine Total 300 ml Estimated Blood Loss 10 ml # Voids 4 General: Alert, Oriented X3, Cooperative Abdomen: Soft, Other (incisional TTP, lap sites dry) Labs Laboratory Tests Test 03/21/19 17:08 03/21/19 20:26 03/22/19 04:00 03/22/19 07:05 Glucose (Fingerstick) 100 mg/dL (70-99) 103 mg/dL (70-99) 127 mg/dL (70-99) Sodium Level 141 mmol/L (136-145) Potassium Level 3.5 mmol/L (3.5-5.1) Chloride Level 105 mmol/L (98-107) Carbon Dioxide Level 26 mmol/L (21-32) Anion Gap 10 (6-14) Blood Urea Nitrogen 6 mg/dL (7-20) Creatinine 0.7 mg/dL (0.6-1.0) Estimated GFR (Cockcroft-Gault) 96.4 BUN/Creatinine Ratio 9 (6-20) Glucose Level 131 mg/dL (70-99) Calcium Level 8.7 mg/dL (8.5-10.1) Iron Level 25 ug/dL (50-170) Total Iron Binding Capacity 309 ug/dL (250-450) Iron Saturation 8 % (15-34) Total Bilirubin 2.6 mg/dL (0.2-1.0) Aspartate Amino Transf (AST/SGOT) 161 U/L (15-37) Alanine Aminotransferase (ALT/SGPT) 152 U/L (14-59) Alkaline Phosphatase 160 U/L (46-116) Total Protein 7.5 g/dL (6.4-8.2) Albumin 3.1 g/dL (3.4-5.0) Albumin/Globulin Ratio 0.7 (1.0-1.7) Thyroid Stimulating Hormone (TSH) 3.124 uIU/mL (0.358-3.74) Test 03/22/19 11:22 03/22/19 13:54 03/22/19 16:38 03/22/19 20:53 Glucose (Fingerstick) 122 mg/dL (70-99) 134 mg/dL (70-99) 132 mg/dL (70-99) 160 mg/dL (70-99) Test 03/23/19 07:39 03/23/19 12:24 Glucose (Fingerstick) 153 mg/dL (70-99) 148 mg/dL (70-99) Laboratory Tests Test 03/22/19 16:38 03/22/19 20:53 03/23/19 07:39 03/23/19 12:24 Glucose (Fingerstick) 132 mg/dL (70-99) 160 mg/dL (70-99) 153 mg/dL (70-99) 148 mg/dL (70-99) Problem List Problems Medical Problems: (1) Acute cholecystitis Status: Acute (2) Chronic anemia Status: Acute (3) Morbid obesity Status: Acute (4) Nausea and vomiting Status: Acute Assessment/Plan s/p sarah ok to ok home FU 2 weeks RADHA PLATT APRN Mar 23, 2019 14:45
--- NOTE | 2019-03-23 18:34 | NUR ---
Discharge teaching completed. IV site discontinued without difficulty. Pt states she has all of her personal belongings and understands her discharge teaching and wound/surgery site care. She was escorted out by staff by wheelchair with her significant other; discharged to home
[2019-03-23] MEDS ORDERED: LACTOBACILLUS RHAMNOSUS GG 1 CAPSULE. PO SCH (21:00)
--- NOTE | 2019-03-26 15:07 | PATHOLOGY ---
[facility] Accession Number: [id number] . 01 Material submitted: . gallbladder - GALLBLADDER . 01 Clinical history: . Calculus cholecystitis . 02 Diagnosis: Gallbladder, laparoscopic cholecystectomy: - Cholelithiasis. - Chronic cholecystitis. (JPM:nancy; 03/26/2019) QMS 03/26/2019 1309 Local . 02 Comment: There is no evidence of malignancy. . 02 Electronically signed: . Pablo Chavez MD, Pathologist NPI- [id number] . 01 Gross description: . The specimen is received in formalin labeled "Sel[place], Angella, gallbladder" and consists of an intact firm rbown gallbladder measuring 6.7 x 3.4 x 2.6 cm. The margin is inked black. Opening reveals a lumen filled with a single oval brown calculus measuring 3.8 x 2.4 cm. The mucosa is brown-brown and trabeculated eroded and granular with an average wall thickness of 0.1 cm. No masses are identified. Wireless Communications Engineer sections are submitted in A1. (SDY; 03/25/2019) SYU/SYU 03/25/2019 1713 Local . 02 Pathologist provided ICD-10: K80.10 . 02 CPT . 113824 Specimen Comment: A courtesy copy of this report has been sent to [phone] Specimen Comment: [id number], Specimen Comment: Report sent to ,DR AKBAR / DR RICHARD Performed at: 01 [facility] [address], [place], [place] [id number] MD Javier Watts MD Phone: [phone] Performed at: 02 [facility] [address], [place] [id number] MD Pablo Chavez MD Phone: [phone]
== END 2019-03-23 17:00 | disposition home or self-care (01) | DRG 418 ==
LOC: ER 00:47 → 4 NORTH 03:07
PROVIDERS: ADMIT Internal Medicine; ATTEND Internal Medicine
PROC: BF141ZZ Fluoroscopy of Gallbladder, Bile Ducts and Pancreatic Ducts using Low Osmolar Contrast (ICD-10-PCS; 2019-03-22)
PROC: 0FT44ZZ Resection of Gallbladder, Percutaneous Endoscopic Approach (ICD-10-PCS; principal; 2019-03-22 12:00)
DX: K80.00 Calculus of gallbladder with acute cholecystitis without obstruction (principal); Z68.41 Body mass index [BMI] 40.0-44.9, adult; E11.9 Type 2 diabetes mellitus without complications; E28.2 Polycystic ovarian syndrome; D50.9 Iron deficiency anemia, unspecified; E03.9 Hypothyroidism, unspecified; F32.9 Major depressive disorder, single episode, unspecified; F41.9 Anxiety disorder, unspecified; K76.0 Fatty (change of) liver, not elsewhere classified; Z88.8 Allergy status to other drugs, medicaments and biological substances; Z83.3 Family history of diabetes mellitus; E66.01 Morbid (severe) obesity due to excess calories
CPT/HCPCS: 36415; 74300; 76705; 80053; 81001; 81025; 82962; 83540; 83550; 83690; 84443; 85025; 96361; 96374; 96375; A7015; J0330; J1100; J1815; J2001; J2250; J2270; J2405; J2543; J2704; J2710; J2765; J3010; J3490; J7030; J7120; Q0169; Q9967; 99285-25; G0378